=== PATIENT | male | born 1955 | race Caucasian/White ===

== ENCOUNTER 2018-03-06 09:50 | Inpatient (IN) ==
[2018-03-06] MEDS ORDERED: PEPCID IV ONE (11:03)
[2018-03-06] MEDS ORDERED: NS 500 ML IV ONE (11:03)
[2018-03-06] MEDS ORDERED: NICODERM PATCH TD ONE (11:03)
[2018-03-06] MEDS ORDERED: LEVAQUIN 750 MG/D5W 750 MG/150 ML IVPB IV ONE (11:03)
[2018-03-06] MEDS ORDERED: DUONEB (A & A) INH ONE (11:03)
[2018-03-06] MEDS ORDERED: TYLENOL PO ONE (11:03)
[2018-03-06] MEDS ORDERED: SOLU-MEDROL IV ONE (11:03)
[2018-03-06] MEDS ORDERED: SODIUM CHLORIDE 0.9% INJ ONE (11:05)
[2018-03-06 11:29] LABS: ALLEN TEST YES; BE 1.2 mmoll (-3.0-3.0); BLOOD TYPE ARTERIAL; HCO3-(ACT) 25.7 mmoll (20.0-26.0); METHB 0.9 % (0.0-1.5); O2(CT) 17.1 mL/dL (15.0-23.0); PCO2(98.6) 41 mmHg (35-45); PO2(98.6) 72 mmHg (60-100); SAMPLE BLOOD; SAO2 96.9 % (95.0-100.0); THB 13.6 g/dL (11.5-17.4); pH(98.6) 7.41 (7.35-7.45)
[2018-03-06 11:30] LABS: MODALITY ROOM AIR; O2HB 89.5 % (95.0-99.0)
[2018-03-06 11:35] LABS: BASO# 0.04 X1000 (0.0-0.2); BASO% 0.5 % (0.0-0.8); EOS# 0.15 X1000 (0.0-0.7); EOS% 1.7 % (0.0-10.0); HEMATOCRIT 42.5 % (42.0-52.0); IMM GRAN# 0.03 X1000 (0.0-0.04); IMM GRAN% 0.3 % (0.0-0.5); LYMPH# 2.77 X1000 (1.2-3.4); LYMPH% 32.2 % (20.5-51.1); MCH 32.2 PG (27-31); MCHC 32.9 g/dL (33-37); MCV 97.7 FL (81-99); MONO# 0.83 X1000 (0.11-0.59); MONO% 9.7 % (1.7-9.3); NEUT# 4.77 X1000 (1.4-6.5); NEUT% 55.6 % (42.2-75.2); PLT 279 X1000 (130-400); RBC 4.35 XMIL (4.7-6.1); WBC 8.59 X1000 (4.8-10.8)
--- NOTE | 2018-03-06 11:50 | Diag Imaging Result Doc PS360 ---
EXAM: CHEST-2 VIEWS 03/06/2018 HISTORY: short of breath TECHNIQUE: PA and lateral chest COMMENT: There are scattered granulomata. The heart size and pulmonary vascularity are within normal limits. The appearance of the chest has not changed significantly since 07/22/2017. IMPRESSION: Stable chest. Electronically signed by Rahul Taylor 03/06/2018 11:48 AM
[2018-03-06 12:07] LABS: AGAP 13; ALB/GLOB RATIO 1.9; ALBUMIN 3.9 g/dL (3.5-5.0); ALKALINE PHOSPHATASE 62 U/L (32-122); BUN 17 mg/dL (8-22); CALCIUM 8.7 mg/dL (8.8-10.2); CHLORIDE 106 mmol/L (98-107); COSMO 286; CREATININE 0.8 mg/dL (0.7-1.2); ESTIMATED GFR > 60; GLUCOSE 90 mg/dL (70-104); GOT 31 U/L (10-34); GPT 33 U/L (10-44); POTASSIUM 4.2 mmol/L (3.5-5.1); SODIUM 143 mmol/L (136-145); TCO2 24 mmol/L (25-35); TOTAL BILIRUBIN 0.27 mg/dL (0.20-1.00)
--- NOTE | 2018-03-06 14:17 | EKG Report ---
Test Performed on : 03/06/2018 10:00:34 AM Test Reason : ED. NO EKG ORDER FOR MUSE Blood Pressure : / mmHG Vent. Rate : 054 BPM Atrial Rate : 054 BPM P-R Int : 150 ms QRS Dur : 088 ms QT Int : 446 ms P-R-T Axes : 094 073 028 degrees QTc Int : 422 ms Sinus bradycardia. Otherwise normal ECG When compared with ECG of 25-JUL-2017 09:50, No significant change was found Unconfirmed Result
[2018-03-06] MEDS ORDERED: TYLENOL PO PRN (14:42)
[2018-03-06] MEDS ORDERED: DUONEB (A & A) INH PRN (14:42)
[2018-03-06] MEDS: DUONEB (A & A) INH SCH ×3 (15:29→23:15)
[2018-03-06] MEDS: LOVENOX SUBQ SCH (15:52)
[2018-03-06] MEDS: ZITHROMAX 500 MG/NS 500 MG/250 ML IVPB IV SCH (15:53)
--- NOTE | 2018-03-06 16:31 | HISTORY AND PHYSICAL ---
PCP: None. CHIEF COMPLAINT: Dyspnea. HISTORY OF PRESENT ILLNESS: Mr. Jones is a 62-year-old male with a history of COPD, not currently on oxygen, chronic pain on narcotic therapy, aortic stenosis, and depression, who comes to the ER with 3-4 days of increasing dyspnea. He went to a walk in clinic around 3-4 days ago because of shortness of breath. He was treated with breathing treatments and sent home. Since that time, he has had continued progressive dyspnea as well as subjective fever and chills. He has chest pain, but only pleuritic type pain when coughing. He denies any resting angina or exertional angina. He denies any lower extremity edema but does report orthopnea. Increasing and progressive dyspnea brought him to the ER today. In the ER his lab work was essentially unremarkable with the exception of an ABG which showed carboxyhemoglobin of 6.7 as well as oxyhemoglobin of 89.5. He does not have a white count and his chest x-ray does not show any acute infiltrates. On physical exam he is continuing to wheeze and having shortness of breath, so he is going to be admitted for COPD exacerbation. PAST MEDICAL HISTORY: 1. Chronic pain on narcotic therapy. 2. Depression. 3. Aortic stenosis status post heart catheterization by Dr. Gallagher on 07/25/17, did show valve area of 0.98, also very minimal nonobstructive coronary artery disease. 4. Borderline diabetes mellitus. SURGICAL HISTORY: He has had bilateral hip arthroplasties, cholecystectomy, and inguinal hernia repair. SOCIAL HISTORY: He is a 50 pack year smoker, denies alcohol or drug use. He is , is at the bedside. He currently still works in [employer]. FAMILY HISTORY: Mother from bone cancer, father from CVA. REVIEW OF SYSTEMS: A 14-point review of systems obtained and found to be negative with the exception of the HPI. ALLERGIES: Penicillin, sulfa. HOME MEDICATIONS: Atrovent HFA 2 puffs inhaled at night, oxycodone 10 one tab p.o. t.i.d., Requip 5 mg p.o. h.s., Neurontin 200 mg p.o. h.s. PHYSICAL EXAMINATION: VITAL SIGNS: Blood pressure 130/60. Heart rate 65. Respiratory rate 22. O2 sat 100% on nasal cannula. Temperature 98.1. GENERAL: This is a well-developed, well-nourished, 62-year-old, male lying on the hospital bed in no acute distress. NEUROLOGIC: He is awake, alert, and oriented. Follows commands without focal deficits. HEENT: Head is atraumatic and normocephalic. Pupils are equal, round, and reactive to light. Oral mucosa is a bit dry. NECK: Trachea is midline. There is no JVD. CHEST: Diminished at the bases with faint expiratory wheezing bilaterally. CV: Regular rate and rhythm. S1, S2 is noted. There is a 2/6 systolic ejection murmur noted. GI: Soft, nondistended, nontender. Bowel sounds are active. EXTREMITIES: No edema, clubbing, or cyanosis. Pulses 1+ bilaterally. DIAGNOSTIC DATA: WBC 8.59, hemoglobin 14, hematocrit 42.5, platelet count 279. ABG on room air: pH 7.41, O2 41, O2 72, bicarbonate 25.7, oxyhemoglobin 88.9, carboxyhemoglobin 6.7. Sodium 143, potassium 4.2, chloride 106, CO2 24, anion gap 13, BUN 17, creatinine 0.8, glucose 90, calcium 8.7, T bili 0.27, AST 31, ALT 33, alk phos 62, ammonia 20. Troponin negative. Protein 6, albumin 3.9. ASSESSMENT AND PLAN: 1. Chronic obstructive pulmonary disease exacerbation: Continue IV steroids, breathing treatments, antibiotics, aggressive pulmonary toilet. 2. Atypical chest pain: Heart catheterization done about 7 months ago shows very minimal nonobstructive coronary artery disease. He does have moderate aortic stenosis. We will trend his cardiac enzymes and monitor telemetry. EKG does not show anything acute. 3. Aortic stenosis: No signs of worsening at this time. We will have him follow-up with Dr. Gallagher on an outpatient basis. 4. Borderline diabetes mellitus: We will check a hemoglobin A1c and a lipid panel. 5. Nicotine dependence: The patient has been highly advised to quit smoking. We will write a nicotine patch, continue daily cessation education. Further recommendations to follow. Dictated by MARYANN Jarrett for Dell Duff MD cc: MARYANN Jarrett MD
[2018-03-06 17:52] LABS: ALLEN TEST NO; BE -1.5 mmoll (-3.0-3.0); BLOOD TYPE ARTERIAL; HCO3-(ACT) 23.7 mmoll (20.0-26.0); METHB 1.1 % (0.0-1.5); O2(CT) 18.1 mL/dL (15.0-23.0); O2HB 93.6 % (95.0-99.0); PCO2(98.6) 37 mmHg (35-45); PO2(98.6) 101 mmHg (60-100); SAMPLE BLOOD; SAO2 99.4 % (95.0-100.0); THB 13.7 g/dL (11.5-17.4)
[2018-03-06 17:53] LABS: MODALITY CANNULA
[2018-03-06] MEDS: SOLU-MEDROL IV SCH (21:00)
[2018-03-06] MEDS: BUSPAR PO PRN (21:00)
[2018-03-06] MEDS ORDERED: PERCOCET-10 PO SCH (21:00)
[2018-03-06] MEDS: NORCO-10 PO PRN (21:00)
[2018-03-06] MEDS: NEURONTIN PO SCH (21:01)
[2018-03-07] MEDS: DUONEB (A & A) INH SCH ×6 (03:45→23:37)
[2018-03-07] MEDS: SOLU-MEDROL IV SCH ×3 (04:26→20:33)
[2018-03-07] MEDS: NORCO-10 PO PRN ×3 (05:47→22:58)
[2018-03-07] MEDS: PRILOSEC PO SCH ×2 (05:47→06:30)
[2018-03-07 06:21] LABS: BASO# 0.01 X1000 (0.0-0.2); BASO% 0.1 % (0.0-0.8); HEMATOCRIT 42.1 % (42.0-52.0); HEMOGLOBIN 13.7 g/dL (14.0-18.0); IMM GRAN# 0.03 X1000 (0.0-0.04); IMM GRAN% 0.4 % (0.0-0.5); LYMPH# 1.02 X1000 (1.2-3.4); LYMPH% 12.4 % (20.5-51.1); MCH 31.6 PG (27-31); MCHC 32.5 g/dL (33-37); MONO% 3.6 % (1.7-9.3); MPV 10.8 FL (7.4-10.4); NEUT# 6.87 X1000 (1.4-6.5); NEUT% 83.5 % (42.2-75.2); PLT 273 X1000 (130-400); RBC 4.34 XMIL (4.7-6.1); WBC 8.23 X1000 (4.8-10.8)
[2018-03-07 07:13] LABS: AGAP 11; BUN 18 mg/dL (8-22); CALCIUM 8.7 mg/dL (8.8-10.2); CHLORIDE 106 mmol/L (98-107); COSMO 289; CREATININE 0.8 mg/dL (0.7-1.2); ESTIMATED GFR > 60; GLUCOSE 172 mg/dL (70-104); MAGNESIUM 2.1 mg/dL (1.5-2.7); POTASSIUM 4.8 mmol/L (3.5-5.1); SODIUM 142 mmol/L (136-145); TCO2 25 mmol/L (25-35)
[2018-03-07] MEDS: NICODERM PATCH TD SCH (08:09)
[2018-03-07] MEDS: NEURONTIN PO SCH ×2 (08:09→20:33)
[2018-03-07] MEDS: ASPIRIN PO SCH (08:09)
[2018-03-07] MEDS: LOVENOX SUBQ SCH (14:40)
[2018-03-07] MEDS: ZITHROMAX 500 MG/NS 500 MG/250 ML IVPB IV SCH (14:40)
--- NOTE | 2018-03-07 19:02 | PROGRESS NOTE ---
DATE: 03/07/2018 SUBJECTIVE: This patient is still complaining of shortness of breath and wheezing. He is not complaining of chest pain, nausea, vomiting, diarrhea, constipation, fever or chills. We will continue with the same management for now. He is getting breathing treatment, steroids, oxygen supplementation, and antibiotics. This patient is still smoking, and he has been highly advised against tobacco use. OBJECTIVE: Vital Signs: Temperature 98 degrees, pulse 77, respiratory rate 21, blood pressure 111/55, oxygen saturation 95% on 2 liters of nasal cannula. HEENT: Head normocephalic. No trauma. PERRLA. Neck: Supple. No JVD. No masses. Central trachea. Chest: Decreased breath sounds globally with prolonged expiratory phase and bilateral expiratory wheezing. Abdomen: Soft, nontender, nondistended. No hepatosplenomegaly. Extremities: No edema. No clubbing. No cyanosis. Neurological: The patient is alert and oriented x3. No focal deficits. LABORATORY DATA: WBC 8.2, hemoglobin 13.7, hematocrit 42.1, platelets 273,000. Sodium 142, potassium 4.8, chloride 106, bicarbonate 25, BUN 18, creatinine 0.8, glucose 172, calcium 8.7, magnesium 2.1. Troponin negative x3. ASSESSMENT AND PLAN: 1. Chronic obstructive pulmonary disease exacerbation. Continue with intravenous steroids, breathing treatment, antibiotics, do pulmonary toilet and oxygen supplementation. 2. Atypical chest pain on presentation, resolved. He had a heart catheterization done 7 months ago that showed minimal nonobstructive coronary arterial disease. He does have a moderate aortic stenosis. Troponin has been negative. 3. Moderate aortic stenosis, stable. For now, we will continue to monitor. 4. Borderline diabetes mellitus. We will monitor for now. I have requested a hemoglobin A1c. 5. Hyperglycemia, likely secondary to steroid use. 6. Tobacco abuse. This patient has been highly advised against tobacco use. We will continue with daily cessation education and using a nicotine patch. cc: Dell Duff MD
[2018-03-07] MEDS: BUSPAR PO PRN (22:58)
[2018-03-08] MEDS: DUONEB (A & A) INH SCH ×6 (03:57→23:15)
[2018-03-08] MEDS: SOLU-MEDROL IV SCH ×3 (05:40→23:26)
[2018-03-08 06:46] LABS: BASO# 0.01 X1000 (0.0-0.2); BASO% 0.1 % (0.0-0.8); HEMATOCRIT 41.4 % (42.0-52.0); HEMOGLOBIN 13.6 g/dL (14.0-18.0); IMM GRAN# 0.05 X1000 (0.0-0.04); IMM GRAN% 0.4 % (0.0-0.5); LYMPH# 1.45 X1000 (1.2-3.4); LYMPH% 11.4 % (20.5-51.1); MCH 31.5 PG (27-31); MCHC 32.9 g/dL (33-37); MCV 95.8 FL (81-99); MONO# 0.67 X1000 (0.11-0.59); MONO% 5.3 % (1.7-9.3); MPV 10.8 FL (7.4-10.4); NEUT# 10.52 X1000 (1.4-6.5); NEUT% 82.8 % (42.2-75.2); PLT 326 X1000 (130-400); RBC 4.32 XMIL (4.7-6.1); RDW 13.8 % (11.5-14.5)
[2018-03-08 07:01] LABS: HEMOGLOBIN A1C 6.1 % (4.8-6.0)
[2018-03-08] MEDS: PRILOSEC PO SCH (07:01)
[2018-03-08] MEDS: NORCO-10 PO PRN ×3 (07:05→23:29)
[2018-03-08 07:10] LABS: AGAP 11; BUN 25 mg/dL (8-22); CALCIUM 8.8 mg/dL (8.8-10.2); CHLORIDE 103 mmol/L (98-107); COSMO 288; CREATININE 0.9 mg/dL (0.7-1.2); ESTIMATED GFR > 60; GLUCOSE 179 mg/dL (70-104); MAGNESIUM 2.3 mg/dL (1.5-2.7); POTASSIUM 4.6 mmol/L (3.5-5.1); SODIUM 140 mmol/L (136-145); TCO2 26 mmol/L (25-35)
[2018-03-08] MEDS: ASPIRIN PO SCH (09:03)
[2018-03-08] MEDS: NICODERM PATCH TD SCH (09:03)
[2018-03-08] MEDS: NEURONTIN PO SCH ×2 (09:03→20:13)
[2018-03-08] MEDS: LOVENOX SUBQ SCH (15:01)
[2018-03-08] MEDS: ZITHROMAX 500 MG/NS 500 MG/250 ML IVPB IV SCH (15:01)
--- NOTE | 2018-03-08 15:31 | PROGRESS NOTE ---
DATE: 03/08/2018 SUBJECTIVE: This patient states that he is still short of breath but compared with admission he feels a little bit better, will continue with the breathing treatment, steroids, oxygen supplementation, pulmonary toilet, I will decrease the dose of steroids from 60 mg q.8 hours to 40 q.12 hours, his wheezing is minimal. OBJECTIVE: Vital Signs: Temperature 98 degrees, pulse 73, respiratory rate 24, blood pressure 111/57, oxygen saturation 99 on 2 L of nasal cannula. HEENT: Head normocephalic. No trauma. PERRLA. Neck: Supple. No JVD. No masses. Central trachea. Chest: Decreased breath sounds globally with prolonged expiratory phase and bilateral faint expiratory wheezing scattered. Abdomen: Soft, nontender, nondistended. No hepatosplenomegaly. Extremities: No edema. No clubbing. No cyanosis. Neurological: The patient is alert and oriented x3. No focal deficits. LABORATORY: WBC 12.7, hemoglobin 13.6, hematocrit 41.4, platelets 326,000, sodium 140, potassium 4.6, chloride 103, bicarbonate 26, BUN 29, creatinine 0.9, glucose 179, calcium 8.8. Hemoglobin A1c 6.1. Magnesium 2.3. ASSESSMENT AND PLAN: 1. Chronic obstructive pulmonary disease exacerbation, continue with the same treatment, I will decrease the dose of steroids from 60 mg IV q.8 hours to 40 mg IV q.12 hours, continue with oxygen supplementation as well. 2. Atypical chest pain on presentation, resolved. 3. Moderate aortic stenosis, stable for now. Will continue to monitor. 4. Borderline diabetes mellitus, hemoglobin A1c 6.1. Will continue to monitor. 5. Hyperglycemia likely secondary to steroid use. 6. Tobacco abuse. This patient has been highly advised against tobacco use. I will continue with daily cessation education and nicotine patch as needed. cc: Dell Duff MD
[2018-03-09] MEDS: DUONEB (A & A) INH SCH ×3 (03:31→11:41)
[2018-03-09] MEDS: PRILOSEC PO SCH (06:03)
[2018-03-09 06:45] LABS: AGAP 11; BUN 24 mg/dL (8-22); CALCIUM 8.2 mg/dL (8.8-10.2); CHLORIDE 102 mmol/L (98-107); COSMO 291; CREATININE 0.9 mg/dL (0.7-1.2); ESTIMATED GFR > 60; GLUCOSE 206 mg/dL (70-104); MAGNESIUM 2.1 mg/dL (1.5-2.7); POTASSIUM 4.8 mmol/L (3.5-5.1); SODIUM 141 mmol/L (136-145); TCO2 28 mmol/L (25-35)
[2018-03-09 06:56] LABS: HEMATOCRIT 41.8 % (42.0-52.0); HEMOGLOBIN 13.7 g/dL (14.0-18.0); IMM GRAN# 0.08 X1000 (0.0-0.04); IMM GRAN% 0.7 % (0.0-0.5); LYMPH# 1.03 X1000 (1.2-3.4); LYMPH% 9.2 % (20.5-51.1); MCH 31.4 PG (27-31); MCHC 32.8 g/dL (33-37); MCV 95.9 FL (81-99); MONO# 0.53 X1000 (0.11-0.59); MONO% 4.7 % (1.7-9.3); MPV 10.7 FL (7.4-10.4); NEUT# 9.58 X1000 (1.4-6.5); NEUT% 85.4 % (42.2-75.2); PLT 324 X1000 (130-400); RBC 4.36 XMIL (4.7-6.1); RDW 13.7 % (11.5-14.5); WBC 11.22 X1000 (4.8-10.8)
[2018-03-09] MEDS: ASPIRIN PO SCH ×2 (07:42→12:26)
[2018-03-09] MEDS: NEURONTIN PO SCH ×2 (07:42→12:26)
[2018-03-09] MEDS: NORCO-10 PO PRN (07:42)
[2018-03-09] MEDS: NICODERM PATCH TD SCH ×2 (07:43→12:27)
[2018-03-09] MEDS: SOLU-MEDROL IV SCH (11:20)
[2018-03-09 12:07] VITALS: BP 114/50
[2018-03-09] MEDS ORDERED: PNEUMOVAX 23 IM ONE (12:15)
--- NOTE | 2018-03-09 22:05 | DISCHARGE SUMMARY ---
ADMISSION DATE: 03/06/2018 DISCHARGE DATE: 03/09/2018 DISCHARGE DIAGNOSES: 1. Chronic obstructive pulmonary disease exacerbation. 2. Atypical chest pain, resolved. 3. Moderate aortic stenosis. 4. Borderline diabetes mellitus, with a hemoglobin A1c of 6.1. 5. Tobacco abuse. HOSPITAL COURSE: A 62-year-old male with a past medical history of COPD, chronic pain, aortic stenosis, who came to the emergency department and admitted on 03/06/2018 due to a 4-day history of dyspnea. He went to a walk-in clinic 3 or 4 days before admission because of shortness of breath. He was treated with breathing treatment and sent home. Since that time, he was just progressively getting worse, and having some subjective chills. Also, he had chest pain, pleuritic-type, when he coughs. He denies any increasing orthopnea. No headache. No abdominal pain. No diarrhea. No nausea. No vomiting. In the emergency department, lab work was essentially stable, with the exception of an ABG, which showed a carboxyhemoglobin of 6.7, as well as oxyhemoglobin of 89.5. X-ray did not show acute infiltrates. Physical exam with wheezing and having shortness of breath. He was admitted because of chronic obstructive pulmonary disease exacerbation. He was placed on steroids breathing treatment, oxygen supplementation, pulmonary toilet. He was transferred to the medical floor, where he was getting better on a daily basis. The dose of the steroids was decreased slowly during this hospitalization. Today, this patient is asymptomatic. He is tolerating p.o., ambulating, and no shortness of breath present. He does have a history of tobacco abuse. I had a really large conversation with this patient, around 50 minutes, about tobacco use and how they cause COPD. He seems to understand, and he has been highly advised against tobacco use. I did continue daily cessation education. He will be discharged home today. He does not need oxygen at this moment. OBJECTIVE: Vital Signs: Temperature 97.5 degrees, pulse 77, respiratory rate 22, blood pressure 114/50, oxygen saturation 94 on room air. HEENT: Head normocephalic. No trauma. PERRLA. Neck: Supple. No JVD. No masses. Central trachea. Chest: Decreased breath sounds globally, with prolonged expiratory phase. No wheezing. Abdomen: Soft, nontender, nondistended. No hepatosplenomegaly. Extremities: No edema. No clubbing. No cyanosis. Neurological: The patient is alert and oriented x3. No focal deficits. LABORATORY: WBC 11.2, hemoglobin 13.7, hematocrit 41.8, platelets 324,000. Sodium 141, potassium 4.8, chloride 102, bicarbonate 28, BUN 24, creatinine 0.9, glucose 206, calcium 8.2, magnesium 2.1. DISCHARGE MEDICATIONS: 1. [place] 10 one tablet p.o. t.i.d. as needed. 2. Lexapro 20 mg p.o. at bedtime. 3. Buspirone 1 tablet p.o. t.i.d. 4. Gabapentin 300 mg p.o. b.i.d. 5. Ropinirole 5 mg p.o. at bedtime. 6. Atrovent HFA one puff q.p.m. 7. Albuterol sulfate 1 to 2 puffs inhaler inhaled 3 to 4 times a day as needed for shortness of breath. 8. Nicotine patch 21 mg p.o. daily as needed. 9. Medrol Dosepak 4 mg p.o. as directed. 10. Advair 250/50 Diskus 1 puff inhaler daily. 11. Azithromycin 1 tablet p.o. daily for 3 days. 12. Aspirin 81 mg p.o. daily. FOLLOWUP: By his primary care doctor in 1 week. TIME DISCHARGING THIS PATIENT: 35 minutes. cc: Dell Duff MD
== END 2018-03-09 13:56 | disposition home or self-care (01) | DRG 192 ==
LOC: SUPCPDRO → ED 09:50 → EDIPHOLD 14:29 → 4N 16:45
PROVIDERS: ATTEND Internal Medicine
CPT/HCPCS: 71020; 71046; 80048; 80053; 82140; 82550; 82805; 83036; 83735; 84484; 85025; 87275; 87276; 87804; 90732; 93005; 94640; 94761; 94762; 94799; 96365; 96375; 99285; A9270; J0456; J1650; J1956; J2920; J2930; J7040; S0028

== ENCOUNTER 2019-02-05 01:01 | Inpatient (IN) ==
[2019-02-05] MEDS ORDERED: DUONEB (A & A) INH ONE (01:19)
[2019-02-05] MEDS ORDERED: SOLU-MEDROL IV ONE (01:19)
--- NOTE | 2019-02-05 01:23 | PROVIDER DOCUMENTATION ---
This chart was entered by Sharda Velasquez Scribe, acting as scribe for Yohannes Yeh MD. HPI-Respiratory General - General Stated Complaint: WHEEZING/SOB/COPD Time Seen by Provider: 02/05/19 01:10 Source: patient Allergies/Adverse Reactions: Patient Allergies Allergy/AdvReac Type Severity Reaction Status Date / Time Penicillins Allergy Severe choking Verified 03/06/18 17:20 Sulfa (Sulfonamide Allergy Intermediate VOMITING Verified 03/06/18 17:20 Antibiotics) sulfamethoxazole AdvReac NAUSEA Verified 03/06/18 17:20 [From Bactrim] trimethoprim [From Bactrim] AdvReac NAUSEA Verified 03/06/18 17:20 Home Medications: Home Medication List Medication Instructions Recorded Confirmed Last Taken Type Escitalopram [Lexapro] 20 mg PO QHS 03/06/18 02/05/19 03/05/18 History Gabapentin 300 mg PO TID 03/06/18 02/05/19 Unknown History Aspirin 81 mg PO DAILY chewtab 03/09/18 02/05/19 Unknown Rx Hydrocodone/Acetaminophen [[place] 1 tab PO PRN PRN 02/05/19 02/05/19 Unknown History 10-325 Tablet] - History of Present Illness-Resp Nature of Presenting Problem: 63 y/o male with history of COPD and tobacco abuse who presents with wheezing, productive cough, and SOB onset 2 days ago despite home updrafts and inhaler. Pt states he smokes 1 ppd. Pt denies fever, chest pain, or cardiac hx. Quality of Pain: reports: none Severity in ED: reports: mild Onset/Duration: reports: 2 days ago Timing: reports: still present Context: reports: other (hx COPD) Exposure: reports: other (hx COPD) Cough Quality/Degree: reports: productive cough Episode Frequency: chronic episodes (hx COPD) Current Respiratory Medication Therapy: Initiated see nurses note Modifying Factors: improves with: nothing Associated Symptoms: reports: cough, shortness of breath, short of breath, wheezing Similar Symptoms Previously?: Yes (hx COPD) Recently seen or treated by another doctor?: No Review of Systems - Adult - REVIEW OF SYSTEMS - ADULT Constitutional: denies: chills, fever Eyes: reports: no symptoms reported Ears, Nose, Mouth & Throat: reports: no symptoms reported Cardiovascular: denies: chest pain, palpitations Respiratory: reports: cough, shortness of breath, wheezing Gastrointestinal: reports: no symptoms reported Genitourinary: reports: no symptoms reported Musculoskeletal: reports: no symptoms reported Integumentary: reports: no symptoms reported Neurological: reports: no symptoms reported Psychiatric: reports: no symptoms reported Endocrine: reports: no symptoms reported Hematologic/Lymphatic: reports: no symptoms reported Allergic/Immunologic: reports: no symptoms reported All Other Systems: Reviewed and Negative Past History - Adult - PAST MEDICAL HISTORY-ADULT Review of Records: reports: Old Records Reviewed, Nursing Assessment Review, Medications Reviewed Major Childhood Illnesses: reports: denies history Cardiovascular: reports: HTN, heart valve problem Respiratory: reports: COPD Gastrointestinal: reports: GERD Obstetrical/Gynecological: reports: denies history Genitourinary: reports: denies history Musculoskeletal: reports: arthritis (chronic), chronic pain Neurological: reports: denies history Endocrine/Immune: reports: Diabetes Diabetes Type: Type 2 Other Conditions: reports: denies history - PRIOR SURGERIES/PROCEDURES Surgical/Procedure History: reports: cholecystectomy, hernia repair, joint replacement (L&R total hip replacement) - PRIOR HOSPITALIZATIONS Prior Hospitalizations: reports: none - IMMUNIZATION STATUS Childhood Immunizations: See Nurse Assessment Flu Vaccine: See Nurse Assessment - FAMILY HISTORY Family History: reviewed, not pertinent - SOCIAL HISTORY Smoking: greater than 1 pack/day Provider spent 3-5 mins advising pt. on dangers of tobacco.: Discussed manners to quit use, and f/u contacts for add'l counseling. Substance Use: none/never Alcohol Use Frequency: never Living Situation: family Physical Exam-General - PHYSICAL EXAM-ADULT Initial Vital Signs Reviewed: Yes - CONSTITUTIONAL General Appearance: appears well, alert, no apparent distress - EYES Eyes: PERRL/EOMI, pink conjunctivae - HEAD, EARS, NOSE, MOUTH & THROAT HENMT: normocephalic/atraumatic, moist mucous membranes, normal ENT inspection - NECK Neck: non-tender, full range of motion - RESPIRATORY Respiratory: chest non-tender, normal breath sounds, wheezing (expiratory) - CARDIOVASCULAR Cardiovascular: normal peripheral pulses, regular rate, rhythm - GASTROINTESTINAL (ABDOMEN) Abdominal Exam: normal bowel sounds, non tender, soft - MUSCULOSKELETAL Back Exam: normal inspection, no CVA tenderness, no vertebral tenderness Extremity: normal range of motion, non-tender - SKIN Integumentary: normal color, warm/dry - NEUROLOGIC Neurologic: grossly normal - PSYCHIATRIC Psych/Mental Status: normal mood/affect, normal thought content, normal thought process, oriented x 3 - HEART Score HEART Score: History: Slightly Suspicious HEART Score: ECG: Normal HEART Score: Age: 45-65 Years HEART Score: Risk Factors for Atherosclerotic Disease: 1 or 2 Risk Factors HEART Score: Troponin: < or = Normal Limit Total HEART Score:: 2 Progress - PLAN OF CARE/RESULTS Progress/Plan/Lab Results: Vital Signs - 8 hr 02/05/19 01:18 02/05/19 01:30 Temperature 98.4 F Pulse Rate 90 88 Respiratory Rate 20 20 Blood Pressure 130/59 O2 Sat by Pulse Oximetry 89 L 95 Laboratory Results - last 24 hr 02/05/19 02/05/19 02/05/19 01:38 01:38 01:38 WBC 9.88 RBC 4.43 L Hgb 14.0 Hct 43.2 MCV 97.5 MCH 31.6 H MCHC 32.4 L RDW Std Deviation 13.4 Plt Count 296 MPV 10.6 H Immature Gran % (Auto) 0.2 Neut % (Auto) 93.7 H Lymph % (Auto) 5.5 L Andrews % (Auto) 0.4 L Eos % (Auto) 0.1 Baso % (Auto) 0.1 Immature Gran # (Auto) 0.02 Neut # (Auto) 9.26 H Lymph # (Auto) 0.54 L Andrews # (Auto) 0.04 L Eos # (Auto) 0.01 Baso # (Auto) 0.01 Specimen Type Sample Site pH pCO2 pO2 HCO3 Base Excess Oxyhemoglobin ABG O2 Sat (Calculated) ABG O2 Saturation ABG Carboxyhemoglobin ABG Methemoglobin Laurent Test A-a O2 Difference Total Hemoglobin Lactate Liter Flow Blood Gas Modality FiO2 % Sodium Potassium Chloride Carbon Dioxide Anion Gap BUN Creatinine Estimated GFR/1.73 m2 BUN/Creatinine Ratio Glucose Calculated Osmolality Calcium Total Bilirubin AST ALT Alkaline Phosphatase Creatine Kinase 91 Troponin T < 0.010 Pwi-A-Jvvbiwyzyis Pept Total Protein Albumin Globulin Albumin/Globulin Ratio 02/05/19 02/05/19 02/05/19 01:38 01:38 01:42 WBC RBC Hgb Hct MCV MCH MCHC RDW Std Deviation Plt Count MPV Immature Gran % (Auto) Neut % (Auto) Lymph % (Auto) Andrews % (Auto) Eos % (Auto) Baso % (Auto) Immature Gran # (Auto) Neut # (Auto) Lymph # (Auto) Andrews # (Auto) Eos # (Auto) Baso # (Auto) Specimen Type ARTERIAL Sample Site R RADIAL pH 7.36 pCO2 43 pO2 107 H HCO3 23.8 Base Excess -1.3 Oxyhemoglobin 92.6 L ABG O2 Sat (Calculated) 18.0 ABG O2 Saturation 99.1 ABG Carboxyhemoglobin 5.60 H* ABG Methemoglobin 1.0 Laurent Test YES A-a O2 Difference 39.0 Total Hemoglobin 13.7 Lactate 1.80 Liter Flow 2.0 Blood Gas Modality CANNULA FiO2 % 28.0 Sodium 140 Potassium 4.8 Chloride 103 Carbon Dioxide 23 L Anion Gap 14 BUN 26 H Creatinine 1.2 Estimated GFR/1.73 m2 > 60 BUN/Creatinine Ratio 22 Glucose 307 H Calculated Osmolality 296 Calcium 9.0 Total Bilirubin 0.16 L AST 19 ALT 19 Alkaline Phosphatase 73 Creatine Kinase Troponin T Pxo-V-Gsiepsqiruy Pept 92 Total Protein 6.4 Albumin 4.3 Globulin 2.1 Albumin/Globulin Ratio 2.0 Orders Category Date Time Status Cardiac Monitoring DIRECTED Care 02/05/19 01:20 Active CHEST-PORTABLE [RAD] Stat Exams 02/05/19 01:20 Taken ABG [RESP] Routine Lab 02/05/19 01:42 Completed BNP [PRO B-NATRIURETIC PEPTIDE] Stat Lab 02/05/19 01:38 Completed CBC WITH ELECTRONIC DIFF [HEME] Stat Lab 02/05/19 01:38 Completed CK PROFILE [SP CHEM] Stat Lab 02/05/19 01:38 Completed CMP [COMPREHENSIVE METABOLIC PANEL] [CHEM] Stat Lab 02/05/19 01:38 Completed TROPONIN T Stat Lab 02/05/19 01:38 Completed Albuterol 2.5MG/Ipratrop 0.5MG [Duoneb (A & A)] Med 02/05/19 01:19 Discontinued 3 ml INH NOW ONE CefTRIAXONE [Rocephin] 1 gm Med 02/05/19 02:16 Active 0.9% Sodium Chloride Inj [Ns] 50 ml IV NOW Methylprednisolone Sod Succ [Solu-Medrol] Med 02/05/19 01:19 Discontinued 125 mg IV NOW ONE Aerosol Treatments Routine Oth 02/05/19 01:19 Completed Aerosol Treatments Stat Oth 02/05/19 01:19 Completed Pulse Oximetry Stat Oth 02/05/19 01:23 Completed Result Diagrams: 02/05/19 01:38 02/05/19 01:38 - REASSESSMENT Reassessment #1 Time Reassessed: 02:00 Status: unchanged Reassessment Comment: continues to wheeze - EKG 1 Time of EKG reading by physician:: 01:24 EKG Read and Signed by:: Yohannes Yeh EKG Interpretation (*Must complete 3 of following elements*): Abnormal Rate: 86 Rhythm: Sinus with frequent PVCs [place]: normal QRS: other (possible lateral infarct) SD Interval: normal ST Wave: normal - XRAY 1 XRAY Study: Chest Impression: See EMR Report - CONSULTS/PCP/HOSPITALIST Notification #1 *Consult/PCP/Hospitalist*: Dr. Trinidad, hospitalist Time Discussed: 02:30 Consult Disposition: Admit Departure - Departure Date of Disposition Decision: 02/05/19 Time of Disposition Decision: 02:35 DIAGNOSIS: COPD exacerbation Disposition: ADMITTED INPATIENT 09 Certified Medical Emergency: Emergent Condition: Stable Referrals and Follow-Ups: None,PCP [Primary Care Provider] - Discharge Education: Steps to Quit Smoking, [id number] - Critical Care Note This patient required my direct & personal management of CC.: No Attestation - Physician/ ROSALIA Attestation Patient care was provided by Advanced Practice Provider:: No The physician spent face to face time with patient:: Yes Advanced Practice Provider documentation review:: Supervising physician onsite and consulted in the evaluation and care of this patient. The physician did have a face to face encounter with the patient. This chart was documented by the indicated scribe, (Sharda Velasquez Scribe) and accurately reflects the services I performed and decisions made by me, Yohannes Yeh MD, as attested by the provider's signature.
[2019-02-05 01:51] LABS: ALLEN TEST YES; BE -1.3 mmoll (-3.0-3.0); BLOOD TYPE ARTERIAL; HCO3-(ACT) 23.8 mmoll (20.0-26.0); O2HB 92.6 % (95.0-99.0); PCO2(98.6) 43 mmHg (35-45); PO2(98.6) 107 mmHg (60-100); SAMPLE BLOOD; SAO2 99.1 % (95.0-100.0); THB 13.7 g/dL (11.5-17.4); pH(98.6) 7.36 (7.35-7.45)
[2019-02-05 01:53] LABS: MODALITY CANNULA
[2019-02-05 02:06] LABS: BASO# 0.01 X1000 (0.0-0.2); BASO% 0.1 % (0.0-0.8); EOS# 0.01 X1000 (0.0-0.7); EOS% 0.1 % (0.0-10.0); HEMATOCRIT 43.2 % (42.0-52.0); IMM GRAN# 0.02 X1000 (0.0-0.04); IMM GRAN% 0.2 % (0.0-0.5); LYMPH# 0.54 X1000 (1.2-3.4); LYMPH% 5.5 % (20.5-51.1); MCH 31.6 PG (27-31); MCHC 32.4 g/dL (33-37); MCV 97.5 FL (81-99); MONO# 0.04 X1000 (0.11-0.59); MONO% 0.4 % (1.7-9.3); MPV 10.6 FL (7.4-10.4); NEUT# 9.26 X1000 (1.4-6.5); NEUT% 93.7 % (42.2-75.2); PLT 296 X1000 (130-400); RBC 4.43 XMIL (4.7-6.1); RDW 13.4 % (11.5-14.5); WBC 9.88 X1000 (4.8-10.8)
[2019-02-05 02:08] LABS: AGAP 14; ALBUMIN 4.3 g/dL (3.5-5.0); ALKALINE PHOSPHATASE 73 U/L (32-122); BUN 26 mg/dL (8-22); CHLORIDE 103 mmol/L (98-107); COSMO 296; CREATININE 1.2 mg/dL (0.7-1.2); ESTIMATED GFR > 60; GLUCOSE 307 mg/dL (70-104); GOT 19 U/L (10-34); GPT 19 U/L (10-44); POTASSIUM 4.8 mmol/L (3.5-5.1); SODIUM 140 mmol/L (136-145); TCO2 23 mmol/L (25-35); TOTAL BILIRUBIN 0.16 mg/dL (0.20-1.00); TOTAL PROTEIN 6.4 g/dL (6.3-8.3)
[2019-02-05] MEDS ORDERED: ROCEPHIN 1 GM in NS 50 ML IV ONE (02:16)
[2019-02-05] MEDS ORDERED: DUONEB (A & A) INH PRN ×2 (02:55→05:51)
[2019-02-05] MEDS ORDERED: NICODERM PATCH TD ONE (03:02)
[2019-02-05] MEDS ORDERED: NICODERM PATCH TD PRN ×2 (03:04→05:52)
[2019-02-05] MEDS ORDERED: LEVAQUIN 500 MG/D5W 500 MG/100 ML IVPB IV SCH (03:15)
[2019-02-05] MEDS ORDERED: DUONEB (A & A) INH SCH (03:30)
--- NOTE | 2019-02-05 06:20 | Diag Imaging Result Doc PS360 ---
CHEST-PORTABLE - 02/05/2019 INDICATION: sob,wheezing COMPARISON: 03/06/2018 FINDINGS: Stable hyperexpanded lungs compatible with COPD. There is some minimal infiltrate in the left lung base, nonspecific. There is pulmonary vascular congestion. No edema. No pleural effusion. Heart size is normal. IMPRESSION: Nonspecific left basilar infiltrate or atelectasis. Electronically signed by Solitario Perea 02/05/2019 6:18 AM
--- NOTE | 2019-02-05 06:20 | HISTORY AND PHYSICAL ---
CHIEF COMPLAINT: Shortness of breath for about 2 days. HISTORY OF PRESENT ILLNESS: Mr. Feliz Jones is a 63-year-old male, who has a history of hypertension, COPD, diabetes mellitus, and tobacco use history, who presented to the hospital because of shortness of breath which he has had for about 2 days. The patient has also described having wheezing as well as cough productive of yellowish sputum. Chest x-ray does not show any significant evidence of convincing infiltrate. The patient was seen and evaluated in the emergency room and has now been admitted to the floor now for further management. PAST MEDICAL HISTORY: COPD, hypertension, diabetes mellitus, valvular heart disease, gastroesophageal reflux disease, as well as chronic pain. SOCIAL HISTORY: He smokes cigarettes. No alcohol or drug use. ALLERGIES: He is allergic to penicillin and sulfa. PAST SURGICAL HISTORY: He has had bilateral hip surgery as well as cholecystectomy. FAMILY HISTORY: Positive for stroke and also cancer. MEDICATIONS: Escitalopram 20 mg p.o. once a day. Gabapentin 300 mg p.o. 3 times a day. Aspirin 81 mg p.o. daily. [place] 10/325 one p.o. p.r.n. REVIEW OF SYSTEMS: Constitutional: No fever. [employer]: No headaches. Eyes: No blurred vision. ENT: Has hearing loss and sinus problems. Cardiovascular: No chest pain. Gastrointestinal: No nausea, vomiting, or diarrhea, no abdominal pains. : No dysuria. Musculoskeletal: Has joint pains. Dermatology: No skin lesions. Hematology: No bleeding problems. Psychiatric: He has anxiety with depression. Endocrinology: Has diabetes. No thyroid disease. Allergy/Immunology: Has symptoms of allergic rhinitis. PHYSICAL EXAMINATION: VITAL SIGNS: Temperature 97.4 degrees, pulse 75, respirations 24, blood pressure is 112/55, oxygen saturation is 97%. HEENT: The patient is atraumatic, normocephalic. He is anicteric. Extraocular movements intact. No oral lesions noted. NECK: No lymphadenopathy or thyromegaly. CARDIOVASCULAR: S1, S2. RESPIRATORY SYSTEM: Has evidence of good air entry bilaterally. ABDOMEN: Soft, nontender. No masses felt. EXTREMITIES: No evidence of edema. CENTRAL NERVOUS SYSTEM: No obvious focal deficit noted. DIAGNOSTIC DATA: WBC 9.88, hematocrit 43.2, with a platelet count of 296,000. ABG 7.36/43/107/99.1%. Sodium 140, potassium 4.8, chloride is 103, bicarb 23, BUN is 26, creatinine is 1.2, glucose is 307. Chest x-ray, no significant infiltrate noted. ASSESSMENT AND PLAN: 1. Chronic obstructive pulmonary disease exacerbation. I will maintain the patient on nebulized bronchodilators, steroids, as well as antibiotics. Check on the patient's sputum culture and follow up on patient's clinical progression. 2. Tobacco use history. Nicotine patch recommended. 3. Hypertension. Optimize blood pressure control. 4. Diabetes mellitus. Maintain patient on sliding scale insulin and monitor blood sugar levels. Check hemoglobin A1c level. 5. Chronic pain syndrome. Optimize pain control. 6. Gastroesophageal reflux disease. Proton pump inhibitor. 7. Valvular heart disease. Check 2D echo. 8. Deep vein thrombosis prophylaxis. Lovenox. cc: Isaías Carmen MD
--- NOTE | 2019-02-05 06:59 | EKG Report ---
Test Performed on : 02/05/2019 06:46:04 AM Test Reason : shortness of breath Blood Pressure : / mmHG Vent. Rate : 070 BPM Atrial Rate : 070 BPM P-R Int : 176 ms QRS Dur : 086 ms QT Int : 436 ms P-R-T Axes : 082 064 034 degrees QTc Int : 470 ms Normal sinus rhythm. with sinus arrhythmia. Normal ECG When compared with ECG of 05-FEB-2019 01:23, (Unconfirmed) premature ventricular complexes. are no longer present Nonspecific T wave abnormality no longer evident in Lateral leads Confirmed by Carolyn VILLANUEVA, Sp ([id number]) on 02/05/2019 10:37:27 AM
[2019-02-05] MEDS ORDERED: HUMULIN R SUBQ SCH (07:00)
[2019-02-05] MEDS ORDERED: PRILOSEC PO SCH (07:00)
--- NOTE | 2019-02-05 07:22 | EKG Report ---
Test Performed on : 02/05/2019 01:23:06 AM Test Reason : SOB Blood Pressure : / mmHG Vent. Rate : 086 BPM Atrial Rate : 086 BPM P-R Int : 162 ms QRS Dur : 090 ms QT Int : 402 ms P-R-T Axes : 081 088 053 degrees QTc Int : 481 ms Sinus rhythm. with frequent premature ventricular complexes. Possible Lateral infarct , age undetermined Abnormal ECG When compared with ECG of 06-MAR-2018 10:00, premature ventricular complexes. are now present Vent. rate has increased BY 32 BPM Nonspecific T wave abnormality now evident in Lateral leads QT has lengthened Unconfirmed Result
[2019-02-05] MEDS: LEVAQUIN 500 MG/D5W 500 MG/100 ML IVPB IV SCH (07:31)
[2019-02-05] MEDS: PRILOSEC PO SCH (07:31)
[2019-02-05] MEDS: SOLU-MEDROL IV SCH ×3 (07:32→21:55)
[2019-02-05] MEDS: HUMALOG SUBQ SCH ×4 (07:32→21:55)
[2019-02-05] MEDS: DUONEB (A & A) INH SCH ×5 (07:46→23:05)
[2019-02-05] MEDS ORDERED: SOLU-MEDROL IV SCH (09:00)
[2019-02-05] MEDS: NORCO-10 PO SCH ×2 (09:10→17:04)
[2019-02-05] MEDS: ASPIRIN PO SCH (09:10)
[2019-02-05] MEDS: NEURONTIN PO SCH ×3 (09:10→17:04)
[2019-02-05] MEDS: BUSPAR PO SCH (12:16)
--- NOTE | 2019-02-05 14:32 | ECHO REPORT ---
ORDER DATE: 02/05/2019 INTERPRETING PHYSICIAN: Dr. Nasir Dietz ECHOCARDIOGRAPHIC MEASUREMENTS: 1. Interventricular septum: 0.8 cm. 2. Left ventricular posterior wall: 0.7 cm. 3. Diastolic diameter: 4.8 cm. 4. Left ventricular systolic diameter: 3.3 cm. 5. Aorta: 3.5 cm. 6. Left atrium: 4.2 cm. SUMMARY OF THE 2-DIMENSIONAL IMAGIN. Aortic valve leaflets are calcified. 2. Mitral valve is normal. 3. Tricuspid valve is normal. 4. Pulmonic valve is normal. 5. Peak velocity across the aortic valve was 4.5 meters per second with a maximum gradient of 80 mmHg, mean gradient of 53 mmHg. 6. Aortic valve area by VTR of 0.5 cm. 7. There is severe to critical aortic stenosis associated with mild aortic regurgitation. 8. There is mild mitral regurgitation. 9. Mild tricuspid regurgitation. 10. Peak velocity across the tricuspid valve was 2.2 meters per second. 11. Normal left ventricular cavity size. 12. Estimated ejection fraction of 65%. 13. There is no pericardial effusion or obvious intracardiac mass or thrombus seen. 14. Would recommend transesophageal echocardiogram to evaluate aortic valve. cc: MD Isaías Patterson MD
--- NOTE | 2019-02-05 15:57 | PROGRESS NOTE ---
DATE: 02/05/2019 SUBJECTIVE: The patient seems to be feeling a bit better today compared with yesterday. His wheezing has improved significantly. He is still short of breath. He is tolerating the nasal cannula. As per the patient, he is not on home O2. We did an echocardiogram that showed severe aortic stenosis, but since he is not having any kind of symptoms at this moment, probably I will set up an appointment with him with Cardiology as an outpatient to evaluate this or I can talk to the heart doctor which is on-call today for evaluation, but this patient is not complaining or having any cardiac symptoms at this moment. OBJECTIVE: Vital signs: Temperature 98.4 degrees, pulse 70, respiratory rate 16, blood pressure 122/66, oxygen saturation 100% on 3 L of nasal cannula. HEENT: Head normocephalic. No trauma. PERRLA. Neck: Supple. No JVD. No masses. Central trachea. Chest: Clear to auscultation. Prolonged expiratory phase. Some end-expiratory wheezing, faint. Some crepitus at the bases. Abdomen: Soft, nontender, nondistended. No hepatosplenomegaly. Extremities: No edema. No clubbing. No cyanosis. Neurological: The patient is awake, alert, and oriented x3. No focal deficits. LABORATORY: WBC 9.8, hemoglobin 14, hematocrit 43.2, platelets 296,000. Sodium 140, potassium 4.8, chloride 103, bicarbonate 23, BUN 26, creatinine 1.2, glucose 307, calcium 9, AST 19, ALT 19, alkaline phosphatase 73. ASSESSMENT AND PLAN: 1. Chronic obstructive pulmonary disease exacerbation. I will continue with the same management. He is getting steroids but I will decrease the dose from 60 q.8 hours to 40 q.12 hours. Continue with antibiotics and bronchodilators, oxygen supplementation. 2. Hypertension. Stable. 3. Type 2 diabetes. Continue with the same management. He seems to be stable. We are going to check a hemoglobin A1c. 4. Severe aortic stenosis. I do not think this patient knows about this diagnosis. I will try to set up an appointment for him or I will try to get 1 of the cardiologists to see this patient, but he is not symptomatic or having some cardiac problems at this moment. 5. Chronic pain syndrome. Continue with his home medications. 6. Gastroesophageal reflux disease. Continue with PPIs. 7. Valvular heart disease. Like I mentioned before, he has a severe aortic stenosis. He has been seen before by Dr. Gallagher and actually they already talked about his aortic stenosis. He had a cardiac cath last year that showed moderate aortic stenosis. The aortic valve area was 0.98 cm2 and [id number] coronary artery disease involving distal main trunk, proximal circumflex, proximal left anterior descending, dominant circumflex system, and no critical stenosis noted. At that point, they recommended just treating this patient medically. 8. Deep vein thrombosis prophylaxis with Lovenox. 9. Depression. Continue with home medications. cc: Dell Duff MD
[2019-02-05] MEDS: LEXAPRO PO SCH (21:54)
[2019-02-06] MEDS: NORCO-10 PO SCH ×4 (02:11→23:44)
[2019-02-06] MEDS: DUONEB (A & A) INH SCH ×6 (03:09→23:26)
[2019-02-06] MEDS: LEVAQUIN 500 MG/D5W 500 MG/100 ML IVPB IV SCH (05:06)
[2019-02-06] MEDS: PRILOSEC PO SCH ×2 (05:06→06:59)
[2019-02-06] MEDS: HUMALOG SUBQ SCH ×3 (06:49→17:55)
[2019-02-06 07:25] LABS: HEMOGLOBIN A1C 6.1 % (4.8-6.0)
[2019-02-06 07:28] LABS: AGAP 14; BUN 31 mg/dL (8-22); CHLORIDE 106 mmol/L (98-107); COSMO 295; CREATININE 1.1 mg/dL (0.7-1.2); ESTIMATED GFR > 60; GLUCOSE 222 mg/dL (70-104); POTASSIUM 4.7 mmol/L (3.5-5.1); SODIUM 141 mmol/L (136-145); TCO2 21 mmol/L (25-35)
[2019-02-06 07:29] LABS: BASO# 0.01 X1000 (0.0-0.2); BASO% 0.1 % (0.0-0.8); HEMATOCRIT 41.1 % (42.0-52.0); HEMOGLOBIN 13.5 g/dL (14.0-18.0); IMM GRAN# 0.04 X1000 (0.0-0.04); IMM GRAN% 0.3 % (0.0-0.5); LYMPH# 0.97 X1000 (1.2-3.4); LYMPH% 7.1 % (20.5-51.1); MCHC 32.8 g/dL (33-37); MCV 97.4 FL (81-99); MONO% 5.1 % (1.7-9.3); MPV 10.9 FL (7.4-10.4); NEUT# 11.96 X1000 (1.4-6.5); NEUT% 87.4 % (42.2-75.2); PLT 320 X1000 (130-400); RBC 4.22 XMIL (4.7-6.1); RDW 13.5 % (11.5-14.5); WBC 13.68 X1000 (4.8-10.8)
[2019-02-06 08:22] LABS: ANISOCYTOSIS 1+; LARGE PLATELETS 1+; LYMPHS 8 % (21-51); MONO 5 % (1-9); SEGS 87 % (42-75)
[2019-02-06] MEDS ORDERED: LOVENOX SUBQ SCH (09:00)
[2019-02-06] MEDS: ASPIRIN PO SCH (10:14)
[2019-02-06] MEDS: BUSPAR PO SCH (10:14)
[2019-02-06] MEDS: NEURONTIN PO SCH ×3 (10:14→17:02)
[2019-02-06] MEDS: LOVENOX SUBQ SCH (10:16)
[2019-02-06] MEDS: SOLU-MEDROL IV SCH (10:16)
--- NOTE | 2019-02-06 15:51 | PROGRESS NOTE ---
DATE: 02/06/2019 SUBJECTIVE: The patient is feeling better today. He is still wheezing, he is still having some shortness of breath. His oxygen saturation is better, and he is using oxygen now on and off. I will request a home O2 evaluation because I believe tomorrow this patient can go home with or without oxygen. Also, I will stop the IV steroids and put him on p.o. treatment. I think this patient is better. OBJECTIVE: Vital Signs: Temperature 97.5 degrees, pulse 68, respiratory rate 18, blood pressure 123/53, oxygen saturation 94% on room air. HEENT: Head normocephalic, no trauma, PERRLA. Neck: Supple. No JVD. No masses. Central trachea. Chest: Clear to auscultation, some wheezing, mostly at the upper part of the thorax, expiratory, prolonged expiratory phase. Some crepitus at the bases. Abdomen: Soft, nontender, nondistended. No hepatosplenomegaly. Extremities: No edema, no clubbing, no cyanosis. Neurological: The patient is awake and alert, he is oriented x3. No focal deficits. LABORATORY: WBC 13.6, hemoglobin 13.5, hematocrit 41.1, platelets 320,000. Sodium 141, potassium 4.7, chloride 106, bicarbonate 21, BUN 31, creatinine 1.1, glucose 222, hemoglobin A1c 6.1, calcium 9. ASSESSMENT AND PLAN: 1. COPD exacerbation. I will continue with same management, I will stop the steroids IV and I will transition to p.o. treatment. Continue with the same management, oxygen as needed, planning to discharge this patient in the morning. 2. Hypertension, stable. 3. Type 2 diabetes. Continue with same management. He seems to be stable as well. I already checked the hemoglobin A1c and it is 6.1. 4. Severe aortic stenosis, followed by Dr. Gallagher as an outpatient. As per the patient, he has not been able to go to the appointment due to financial issues. 5. Chronic pain syndrome. Continue with his home medications. 6. Gastroesophageal reflux disease. Continue proton pump inhibitors. 7. Deep vein thrombosis prophylaxis with Lovenox. 8. Depression. Continue with home medications. cc: Dell Duff MD
[2019-02-06] MEDS: LEXAPRO PO SCH (23:46)
[2019-02-07] MEDS: HUMALOG SUBQ SCH ×2 (01:06→06:24)
[2019-02-07] MEDS: NORCO-10 PO SCH ×2 (01:08→09:46)
[2019-02-07] MEDS: DUONEB (A & A) INH SCH ×3 (03:06→11:37)
[2019-02-07] MEDS: LEVAQUIN 500 MG/D5W 500 MG/100 ML IVPB IV SCH (05:21)
[2019-02-07] MEDS: PRILOSEC PO SCH (06:27)
[2019-02-07 07:16] LABS: BASO# 0.01 X1000 (0.0-0.2); BASO% 0.1 % (0.0-0.8); EOS# 0.01 X1000 (0.0-0.7); EOS% 0.1 % (0.0-10.0); HEMATOCRIT 40.3 % (42.0-52.0); HEMOGLOBIN 13.1 g/dL (14.0-18.0); IMM GRAN# 0.07 X1000 (0.0-0.04); IMM GRAN% 0.6 % (0.0-0.5); LYMPH# 2.51 X1000 (1.2-3.4); LYMPH% 22.3 % (20.5-51.1); MCH 31.8 PG (27-31); MCHC 32.5 g/dL (33-37); MCV 97.8 FL (81-99); MONO# 0.81 X1000 (0.11-0.59); MONO% 7.2 % (1.7-9.3); MPV 10.8 FL (7.4-10.4); NEUT# 7.84 X1000 (1.4-6.5); NEUT% 69.7 % (42.2-75.2); PLT 305 X1000 (130-400); RBC 4.12 XMIL (4.7-6.1); RDW 13.7 % (11.5-14.5); WBC 11.25 X1000 (4.8-10.8)
[2019-02-07 07:38] LABS: AGAP 11; BUN 24 mg/dL (8-22); CALCIUM 8.6 mg/dL (8.8-10.2); CHLORIDE 106 mmol/L (98-107); COSMO 289; ESTIMATED GFR > 60; GLUCOSE 124 mg/dL (70-104); POTASSIUM 4.5 mmol/L (3.5-5.1); SODIUM 142 mmol/L (136-145); TCO2 25 mmol/L (25-35)
[2019-02-07 08:11] VITALS: BP 15/4
[2019-02-07] MEDS ORDERED: PREDNISONE PO SCH (09:00)
[2019-02-07] MEDS: ASPIRIN PO SCH (09:45)
[2019-02-07] MEDS: BUSPAR PO SCH (09:46)
[2019-02-07] MEDS: NEURONTIN PO SCH (09:46)
[2019-02-07] MEDS: LOVENOX SUBQ SCH (09:48)
--- NOTE | 2019-02-07 14:57 | DISCHARGE SUMMARY ---
ADMISSION DATE: 02/05/2019 DISCHARGE DATE: 02/07/2019 DISCHARGE DIAGNOSES: 1. Chronic obstructive pulmonary disease exacerbation. 2. Hypertension. 3. Type 2 diabetes. 4. Severe aortic stenosis. 5. Chronic pain syndrome. 6. Gastroesophageal reflux disease. 7. Depression. PROCEDURES PERFORMED: 1. Chest x-ray dated 02/05/2019--Impression: Nonspecific left basilar infiltrate or atelectasis. 2. Echocardiogram dated 02/05/2019--Impression: Ejection fraction 65%. Severe critical aortic stenosis associated with mild aortic regurgitation. HOSPITAL COURSE: A 63-year-old male with a past medical history of hypertension, COPD, diabetes, tobacco abuse, aortic valve stenosis, who presented to the hospital because of shortness of breath for 2 days. He was admitted on 02/05/2019. The patient also described having wheezing as well as cough with a yellowish sputum. Chest x-ray did not show any significant evidence of infiltrate. The patient was evaluated in the emergency room and we admitted this patient and placed this patient on steroids, antibiotics, breathing treatment, and oxygen supplementation. The patient was feeling much better on a daily basis. I requested a new echocardiogram that showed a severe aortic stenosis. This patient has been followed as an outpatient by Dr. Gallagher, but he was missing his last appointments because he was not able to afford the consult. His COPD exacerbation is basically resolved. Today he is not wheezing. I have stopped already the IV steroids and I will continue with p.o. treatment. He was placed on antibiotics with levofloxacin which I will continue for a couple more days. This patient is still smoking and I talked to him every single day about cessation, he seems to understand. I did a home O2 evaluation and this patient requires oxygen to go home with. The discharge nurse is taking care of all of the arrangements. This patient seems to be feeling much better. He is asymptomatic today. He will be discharged home with oxygen and follow up with a hardboard factory worker, Dr. Rooney, and also follow up with Dr. Gallagher, he will need to call for a new appointment. OBJECTIVE: Vital Signs: Temperature 97.8 degrees, pulse 64, respiratory rate 15, blood pressure 121/61, oxygen saturation 100% on room air. HEENT: Head normocephalic, no trauma. PERRLA. Neck: Supple. No JVD. No masses. Central trachea. Chest: Prolonged expiratory phase with mild faint expiratory wheezing. Abdomen: Soft, nontender, nondistended. No hepatosplenomegaly. Extremities: No edema, no clubbing, no cyanosis. Neurological: The patient is awake, alert, and oriented x3. No focal deficits. LABORATORY: WBC 11.2, hemoglobin 13.1, hematocrit 40.3, platelets 305,000, sodium 142, potassium 4.5, chloride 106, bicarbonate 25, BUN 24, creatinine 1, glucose 124, calcium 8.6, hemoglobin A1c 6.1. DISCHARGE MEDICATIONS: Albuterol sulfate inhaler 2 puffs every 6 hours as needed for shortness of breath, aspirin 81 mg p.o. daily, buspirone 10 mg p.o. daily, Lexapro 20 mg p.o. at bedtime, gabapentin 300 mg p.o. t.i.d., [place] 10 one tablet p.o. t.i.d., ipratropium bromide 2 puffs of inhaler 4 times a day, levofloxacin 500 mg p.o. daily to complete 5 days, and Medrol Dosepak 4 mg p.o. as directed. cc: Dell Duff MD
== END 2019-02-07 13:13 | disposition home or self-care (01) | DRG 192 ==
LOC: ED 01:01 → SUATTDRO 03:24 → 4N 03:24
PROVIDERS: ATTEND Internal Medicine

== ENCOUNTER 2019-03-29 08:44 | Inpatient (IN) ==
--- NOTE | 2019-03-29 08:47 | PROVIDER DOCUMENTATION ---
HPI-General Adult - General Stated Complaint: SOB Time Seen by Provider: 03/29/19 08:47 Source: patient Allergies/Adverse Reactions: Patient Allergies Allergy/AdvReac Type Severity Reaction Status Date / Time Penicillins Allergy Severe choking Verified 03/29/19 09:25 Sulfa (Sulfonamide Allergy Intermediate VOMITING Verified 03/29/19 09:25 Antibiotics) latex Allergy RASH Verified 03/29/19 09:25 sulfamethoxazole AdvReac NAUSEA Verified 03/29/19 09:25 [From Bactrim] trimethoprim [From Bactrim] AdvReac NAUSEA Verified 03/29/19 09:25 Home Medications: Home Medication List Medication Instructions Recorded Confirmed Last Taken Type Gabapentin 300 mg PO TID 03/06/18 03/29/19 03/24/19 05:30 History Hydrocodone/Acetaminophen [[place] 1 tab PO TID 02/05/19 03/29/19 03/24/19 05:30 History 10-325 Tablet] Albuterol Sulfate Inhaler 2 puff INH Q6H PRN PRN #1 inhaler 02/07/19 03/29/19 03/24/19 05:45 Rx [Ventolin Hfa] - History of Present Illness -Gen Adult Nature of Presenting Problems: Pt. is 63 yom that presents with c/o SOB. He was recently at and told he needed a valve replacement. Today he can barely catch his breath. He is on home O2 at 4 LPM. Pt. denies any other complaints. Location of Pain/Injury: reports: none. denies: head, face, mouth, neck, chest, upper extremity, hand(s), abdomen, back, pelvis, genitalia, lower extremity, feet, upper body, lower body, generalized, other Pain Radiation: reports: no radiation. denies: arm(s), back, buttocks, chest, epigastric, feet, groin, jaw, flank (L), legs (lower), LLQ, LUQ, neck, perium bilical, flank (R), RLQ, RUQ, shoulder(s), scapula, scrotal, sternal notch, suprapubic, legs (upper), urethral, vaginal, other Quality of Pain: reports: none. denies: aching, indigestion, throbbing Severity: reports: moderate. denies: mild, severe Onset/Duration: reports: unsure Timing: reports: still present. denies: improving, intermittent, getting worse Context/Activities at Onset: reports: none. denies: light activity, moderate activity, vigorous activity, recent emotional stress, recent physical stress, recent trauma history, possible bad food, cold exposure, eating, out of country travel, rest, sleep, sexual activity, other Modifying Factors: improves with: nothing Associated Symptoms: reports: shortness of breath. denies: denies symptoms, anxiety, arm pain, back/neck pain, chest pain, constipation, cough, diaphoresis, diarrhea, dizziness, EENT symptoms, fatigue, fever/chills, genitourinary problems, headaches, heartburn, joint pain, loss of appetite, malaise, muscle aches, sinus congestion/drainage, nausea, rash, seizure, sensory/motor loss, pain with inspiration, swelling/mass in abdomen, syncope, vomiting, weakness, trouble walking, other Similar Symptoms Previously?: Yes Recently seen or treated by another doctor?: Yes Review of Systems - Adult - REVIEW OF SYSTEMS - ADULT Constitutional: reports: no symptoms reported Eyes: reports: no symptoms reported Ears, Nose, Mouth & Throat: reports: no symptoms reported Cardiovascular: reports: no symptoms reported Respiratory: reports: see HPI, shortness of breath. denies: cough, pleurisy, wheezing Gastrointestinal: reports: no symptoms reported Genitourinary: reports: no symptoms reported Musculoskeletal: reports: no symptoms reported Integumentary: reports: no symptoms reported Neurological: reports: no symptoms reported Psychiatric: reports: no symptoms reported Past History - Adult - PAST MEDICAL HISTORY-ADULT Review of Records: reports: Old Records Reviewed, Nursing Assessment Review, Medications Reviewed, Social history reviewed & non-contributory. Major Childhood Illnesses: reports: denies history Cardiovascular: reports: HTN, heart valve problem Respiratory: reports: COPD Gastrointestinal: reports: GERD Obstetrical/Gynecological: reports: denies history Genitourinary: reports: denies history Musculoskeletal: reports: arthritis (chronic), chronic pain Neurological: reports: denies history Endocrine/Immune: reports: Diabetes Other Conditions: reports: denies history - PRIOR SURGERIES/PROCEDURES Surgical/Procedure History: reports: cholecystectomy, hernia repair, joint replacement (L&R total hip replacement) - PRIOR HOSPITALIZATIONS Prior Hospitalizations: reports: none - IMMUNIZATION STATUS Childhood Immunizations: See Nurse Assessment Flu Vaccine: See Nurse Assessment - FAMILY HISTORY Family History: reviewed, not pertinent - SOCIAL HISTORY Smoking: cigarettes, greater than 1 pack/day Provider spent 3-5 mins advising pt. on dangers of tobacco.: Discussed manners to quit use, and f/u contacts for add'l counseling. Physical Exam-General - PHYSICAL EXAM-ADULT Initial Vital Signs Reviewed: Yes - CONSTITUTIONAL General Appearance: alert, moderate distress, thin. negative: anxious, obtunded, combative - EYES Eyes: PERRL/EOMI, pink conjunctivae - HEAD, EARS, NOSE, MOUTH & THROAT HENMT: normocephalic/atraumatic, moist mucous membranes - NECK Neck: non-tender, full range of motion, supple, normal inspection - RESPIRATORY Respiratory: decreased breath sounds, wheezing, increased rate. negative: crackles, rales, rhonchi - CARDIOVASCULAR Cardiovascular: normal peripheral pulses, regular rate, rhythm, no edema - GASTROINTESTINAL (ABDOMEN) Abdominal Exam: normal bowel sounds, non tender, soft - LYMPHATIC Lymphatic: no adenopathy - MUSCULOSKELETAL Back Exam: normal inspection, no CVA tenderness, no vertebral tenderness Extremity: normal range of motion, non-tender, normal inspection Peripheral Pulses: radial (R): 2+, radial (L): 2+ - SKIN Integumentary: normal color, normal turgor, warm/dry - NEUROLOGIC Neurologic: grossly normal, no motor/sensory deficits - PSYCHIATRIC Psych/Mental Status: normal mood/affect, normal thought content, normal thought process, oriented x 3. negative: anxious, paranoid, tearful Progress - PLAN OF CARE/RESULTS Result Diagrams: 03/29/19 09:15 03/29/19 09:15 - EKG 1 Time of EKG reading by physician:: 08:59 EKG Read and Signed by:: Jose Kenyon EKG Interpretation (*Must complete 3 of following elements*): Normal Rate: 63 Rhythm: NSR Antonito: normal QRS: normal MN Interval: normal ST Wave: normal - XRAY 1 XRAY Study: Chest ([facility] - [address], [address], [place] [address] [facility] - [address] [place] [address] Department of Imaging Patient: NORMA RAEADM Date: 03/29/19MR#: [id number] : 1955DM Status: PRE ERAcct#: [id number] Age/Sex: 63/MRoom/Bed: Loc: ED Ordering Physician: Zenobia Mancilla Family Physician: None,PCP Reason for Procedure: SOB Signed EXAM: CHEST-PORTABLE 03/29/2019 HISTORY: SOB TECHNIQUE: AP portable upright at 0901 COMMENT: There is minimal basilar atelectasis over the left hemidiaphragm. The inspiration is less optimal than on 03/23/2019. IMPRESSION: Left lower lobe basilar atelectasis. Electronically signed by Rahul Taylor 03/29/2019 9:11 AM 03/29/19910 Interpreting Physician: Rahul Taylor MD Dictated Date/Time: 03/29/19909 cc: Zenobia Mancilla; None,PCP) XRAY Interpretation: See note - CT/MRI 1 CT Study: Thorax ([facility] - [address] [facility], [address] [phone] [facility] - [address] [place] [address] Department of Imaging Patient: NORMA RAE Date: 03/29/19MR#: [id number] : 1955DM Status: REG ERAcct#: [id number] Age/Sex: 63/MRoom/Bed: Loc: ED Ordering Physician: Zenobia Mancilla Family Physician: None,PCP Reason for Procedure: SOB ___ Signed EXAM: CT ANGIOGRM PULMONARY ARTERIES 03/29/2019 HISTORY: SOB TECHNIQUE: This exam was performed using automated exposure control, adjustment of mA or kV according to patient size, and/or use of iterative reconstruction technique. COMMENT: 3-D MIPS were performed. The current study is compared with 09/02/2011 and that of 07/23/2017. There is opacification of some of the peripheral branches of the pulmonary arteries in the right middle lobe and right lower lobe and there is a clearly defined filling defect in the left lower lobe on image 75. This was not present at the time the previous study. There is some superior mediastinal adenopathy with one node on image 19 measuring over 2 cm and a right paratracheal node on image 36 measuring over 18 mm. These findings were not present at the time of the previous study. There is an enlarged node in the precarinal region measuring over 2 cm in long axis. There is some subcarinal adenopathy which was also not previously present. There is right hilar adenopathy which was not present previously. There is also some left hilar adenopathy. There is severe COPD. There is a small pleural based nodule present in the right lower lobe on image 60 which was apparently present at the time the previous study. This measures 7 mm in greatest dimension. There is a nodule on image 65 laterally in the right lower lobe which may also have been present previously although the lungs were not as well-expanded on the previous study. This measures almost 7 mm in long axis. There are numerous calcified granulomata in the left lower lobe and left upper lobe. There is no evidence of acute bony abnormality. There is a left adrenal nodule measuring 18 x 15 mm. This has not changed significantly since 07/23/2017. IMPRESSION: 1. Minimal peripheral pulmonary emboli bilaterally. 2. New mediastinal and hilar adenopathy. Stable right lower lobe pulmonary nodules. 3. COPD. Electronically signed by Rahul Taylor 03/29/2019 12:28 PM 03/29/19 2738 Interpreting Physician: Rahul Taylor MD Dictated Date/Time: 03/29/19 121 cc: Zenobia Mancilla; None,PCP) CT Results: See note - CONSULTS/PCP/HOSPITALIST Notification #1 *Consult/PCP/Hospitalist*: Dr. Vivar hospitilist at Time Discussed: 13:47 Reason/Comments: transfer Consult Disposition: other (Pt. is only scheduled for evaluation for heart valve replacement and she feels we can manage at [facility].) #2 Consult: Stephany for Dr. Sky Time Discussed: 14:00 Reason/Comments: Admission Consult Disposition: Will see in ED, Admit Departure - Departure Date of Disposition Decision: 03/29/19 Time of Disposition Decision: 12:49 DIAGNOSIS: COPD exacerbation, Tobacco use disorder, Anxiety about health, Elevated d-dimer Pulmonary emboli Qualifiers: Pulmonary embolism type: unspecified Chronicity: unspecified Acute cor pu lmonale presence: unspecified Qualified Code(s): I26.99 - Other pulmonary embolism without acute cor pulmonale Disposition: ADMITTED INPATIENT 09 Certified Medical Emergency: Emergent Condition: Stable Referrals and Follow-Ups: None,PCP [Primary Care Provider] - - Critical Care Note This patient required my direct & personal management of CC.: Yes Total Time (mins): 35 Critical Care Statement: This patient required my direct personal management to treat or rule out processes, the absence of which, could potentiallly result in sudden, clinically significant life or limb threatening deterioration. Attestation - Physician/ ROSALIA Attestation Patient care was provided by Advanced Practice Provider:: Yes Advanced Practice Provider:: Zenobia Mancilla Advanced Practice Provider documentation review:: The Mid-level provider documentation, treatment plan and medical decision making was reviewed by the physician who agrees with all treatment and medical decision making by the P. The physician spent face to face time with patient:: No Advanced Practice Provider documentation review:: Supervising physician onsite and consulted in the evaluation and care of this patient. The physician did not have a face to face encounter with the patient.
[2019-03-29] MEDS ORDERED: SOLU-MEDROL IV ONE (08:55)
[2019-03-29] MEDS ORDERED: DUONEB (A & A) INH ONE ×2 (08:55→14:04)
--- NOTE | 2019-03-29 09:14 | Diag Imaging Result Doc PS360 ---
EXAM: CHEST-PORTABLE 03/29/2019 HISTORY: SOB TECHNIQUE: AP portable upright at 0901 COMMENT: There is minimal basilar atelectasis over the left hemidiaphragm. The inspiration is less optimal than on 03/23/2019. IMPRESSION: Left lower lobe basilar atelectasis. Electronically signed by Rahul Taylor 03/29/2019 9:11 AM
[2019-03-29 09:25] LABS: ALLEN TEST YES; BLOOD TYPE ARTERIAL; HCO3-(ACT) 26.5 mmoll (20.0-26.0); METHB 0.8 % (0.0-1.5); O2(CT) 16.8 mL/dL (15.0-23.0); O2HB 96.5 % (95.0-99.0); PCO2(98.6) 40 mmHg (35-45); PO2(98.6) 143 mmHg (60-100); SAMPLE BLOOD; SAO2 99.6 % (95.0-100.0); THB 12.2 g/dL (11.5-17.4); pH(98.6) 7.43 (7.35-7.45)
[2019-03-29 09:28] LABS: MODALITY CANNULA
[2019-03-29 09:36] LABS: BASO# 0.06 X1000 (0.0-0.2); BASO% 0.8 % (0.0-0.8); EOS# 0.36 X1000 (0.0-0.7); EOS% 4.8 % (0.0-10.0); HEMATOCRIT 36.8 % (42.0-52.0); HEMOGLOBIN 11.7 g/dL (14.0-18.0); IMM GRAN# 0.03 X1000 (0.0-0.04); IMM GRAN% 0.4 % (0.0-0.5); LYMPH# 1.24 X1000 (1.2-3.4); LYMPH% 16.5 % (20.5-51.1); MCH 30.8 PG (27-31); MCHC 31.8 g/dL (33-37); MCV 96.8 FL (81-99); MONO# 0.79 X1000 (0.11-0.59); MONO% 10.5 % (1.7-9.3); MPV 10.3 FL (7.4-10.4); NEUT# 5.03 X1000 (1.4-6.5); PLT 295 X1000 (130-400); RDW 13.1 % (11.5-14.5); WBC 7.51 X1000 (4.8-10.8)
[2019-03-29 09:58] LABS: INR 1.11; PROTIME 14.5 Seconds (11.0-16.0)
[2019-03-29 09:59] LABS: PTT 31.8 Seconds (22.3-41.8)
[2019-03-29 10:02] LABS: AGAP 9; ALB/GLOB RATIO 1.5; ALBUMIN 3.8 g/dL (3.5-5.0); ALKALINE PHOSPHATASE 85 U/L (32-122); BUN 14 mg/dL (8-22); CHLORIDE 99 mmol/L (98-107); CK PROFILE 82 U/L (24-204); COSMO 275; CREATININE 0.9 mg/dL (0.7-1.2); ESTIMATED GFR > 60; GLUCOSE 114 mg/dL (70-104); GOT 18 U/L (10-34); GPT 17 U/L (10-44); POTASSIUM 4.7 mmol/L (3.5-5.1); SODIUM 137 mmol/L (136-145); TCO2 29 mmol/L (25-35); TOTAL BILIRUBIN 0.32 mg/dL (0.20-1.00); TOTAL PROTEIN 6.4 g/dL (6.3-8.3)
[2019-03-29 11:12] LABS: URINE SOURCE CLEAN CATCH
[2019-03-29 11:16] LABS: BILIRUBIN URINE NEGATIVE (NEGATIVE); BLOOD URINE NEGATIVE (NEGATIVE); COLOR YELLOW; GLUCOSE URINE NEGATIVE (NEGATIVE); KETONE URINE NEGATIVE (NEGATIVE); LEUKOCYTES URINE NEGATIVE (NEGATIVE); NITRITE URINE NEGATIVE (NEGATIVE); PH URINE 6.5; PROTEIN URINE NEGATIVE (NEGATIVE); TURBIDITY URINE CLEAR (CLEAR); UR EPITHELIAL CELLS <10 /HPF (<10); URINE BACTERIA NEGATIVE /HPF; URINE RBC <10 /HPF (<10); URINE WBC <10 /HPF (<10); UROBILINOGEN URINE NORMAL (NORMAL)
[2019-03-29] MEDS ORDERED: NICODERM PATCH TD ONE (12:28)
[2019-03-29] MEDS ORDERED: ATIVAN IV ONE (12:28)
--- NOTE | 2019-03-29 12:31 | Diag Imaging Result Doc PS360 ---
EXAM: CT ANGIOGRM PULMONARY ARTERIES 03/29/2019 HISTORY: SOB TECHNIQUE: This exam was performed using automated exposure control, adjustment of mA or kV according to patient size, and/or use of iterative reconstruction technique. COMMENT: 3-D MIPS were performed. The current study is compared with 09/02/2011 and that of 07/23/2017. There is opacification of some of the peripheral branches of the pulmonary arteries in the right middle lobe and right lower lobe and there is a clearly defined filling defect in the left lower lobe on image 75. This was not present at the time the previous study. There is some superior mediastinal adenopathy with one node on image 19 measuring over 2 cm and a right paratracheal node on image 36 measuring over 18 mm. These findings were not present at the time of the previous study. There is an enlarged node in the precarinal region measuring over 2 cm in long axis. There is some subcarinal adenopathy which was also not previously present. There is right hilar adenopathy which was not present previously. There is also some left hilar adenopathy. There is severe COPD. There is a small pleural based nodule present in the right lower lobe on image 60 which was apparently present at the time the previous study. This measures 7 mm in greatest dimension. There is a nodule on image 65 laterally in the right lower lobe which may also have been present previously although the lungs were not as well-expanded on the previous study. This measures almost 7 mm in long axis. There are numerous calcified granulomata in the left lower lobe and left upper lobe. There is no evidence of acute bony abnormality. There is a left adrenal nodule measuring 18 x 15 mm. This has not changed significantly since 07/23/2017. IMPRESSION: 1. Minimal peripheral pulmonary emboli bilaterally. 2. New mediastinal and hilar adenopathy. Stable right lower lobe pulmonary nodules. 3. COPD. Electronically signed by Rahul Taylor 03/29/2019 12:28 PM
[2019-03-29] MEDS ORDERED: LOVENOX 1 MG/KG SUBQ ONE (13:59)
[2019-03-29] MEDS ORDERED: LOVENOX SUBQ ONE (14:30)
--- NOTE | 2019-03-29 15:07 | HISTORY AND PHYSICAL ---
PRIMARY CARE PHYSICIAN: Listed as none. CHIEF COMPLAINT: Worsening shortness of breath since having a heart catheterization on 03/24/2019. Despite using home O2, it progressively worsened. HISTORY OF PRESENTING ILLNESS: This is a 63-year-old, male, who presents to [facility] with complaints of worsening shortness of breath that has progressively worsened since he had a heart catheterization on 03/24/2019. He uses home O2 at 4 L via nasal cannula, and has severe COPD, but continues to smoke a half a pack a day. Again, he had a heart catheterization on 03/24/2019 that showed recommendations of being referred to an armorer technician in [place] for consideration of a TAVR, which he has an appointment set up this upcoming , 04/02/2019. He also was noted during that heart catheterization to have pulmonary hypertension. Today, his O2 saturation was 100% on 4 L. His laboratory data showed a D-dimer of greater than 20, so we did a pulmonary arteriogram that showed minimal peripheral pulmonary emboli bilaterally. He is noted to be wheezing throughout his entire lung rodriguez, so he will be admitted to the PVC unit for further evaluation and treatment. PAST MEDICAL HISTORY: Severe COPD, hypertension, diabetes type 2, valvular heart disease, GERD, chronic pain. PAST SURGICAL HISTORY: Bilateral hip replacement, cholecystectomy, and appendectomy. FAMILY HISTORY: Reviewed and noncontributory. SOCIAL HISTORY: He currently lives with family. Smokes a half a pack of cigarettes a day and has done so since he was 12 years old. Denied any alcohol or illicit drug use. ALLERGIES: Penicillin, sulfa, latex. HOME MEDICATIONS: He takes a Ventolin inhaler 2 puffs every 6 hours p.r.n., gabapentin 300 mg p.o. t.i.d., [place] 10 one p.o. t.i.d. IMAGING AND LABORATORY DATA: Laboratory data showed a white blood cell count of 7.51, hemoglobin 11.7, hematocrit 36.8, platelets 295,000. PT and INR 14.5 and 1.11, with a D-dimer of greater than 20. ABG showed a pH of 7.43, pCO2 of 40, PO2 of 143, pCO2 of 26.5, and this was on 4 L via nasal cannula. Sodium 137, potassium 4.7, chloride 99, CO2 of 29, BUN of 14, creatinine 0.9, glucose 114, creatine kinase of 82. Troponin T high-sensitivity of 13. ProBNP of 183. Urinalysis was negative. Chest x-ray showed a left lower lobe basilar atelectasis. Pulmonary arteriogram showed minimal peripheral pulmonary emboli bilaterally, a new mediastinal and hilar adenopathy, stable right lower lobe pulmonary nodule, and COPD. REVIEW OF SYSTEMS: He denied any fever, chills, blurred vision, dizziness, chest pain. He has a nonproductive cough, shortness of breath, wheezing. Denied any abdominal pain, constipation, diarrhea, burning or hurting with urination. PHYSICAL EXAMINATION: VITAL SIGNS: On arrival, he has a temperature of 97.6 degrees, pulse 65, respirations 26, blood pressure 123/65, saturating 97% on room air. GENERAL: This is a 63-year-old, male, who is lying in the bed and answers questions appropriately. HEENT: Normocephalic, atraumatic. Normal ENT inspection. Oropharynx and nares are clear. Eyes: Pupils are equal, round, and reactive to light and accommodation. Extraocular movements are intact. NECK: Normal inspection. Normal range of motion. LUNGS: Wheezing throughout entire lung rodriguez. Equal lung expansion. Chest wall movement noted. HEART: Regular rate and rhythm. No murmurs, rubs, or gallops. ABDOMEN: Soft, nontender, nondistended. Bowel sounds are present x4 quadrants. MUSCULOSKELETAL: He had 5/5 strength x4 extremities. NEUROLOGICAL: The cranial nerves II through XII appear grossly intact. ASSESSMENT: 1. Dyspnea. 2. Elevated D-dimer. 3. Bilateral peripheral pulmonary emboli. 4. Tobacco abuse. 5. Severe chronic obstructive pulmonary disease. PLAN: He will be admitted to the PVC unit, placed on telemetry. We will check a bilateral lower extremity venous Doppler, do a hypercoagulable workup, check an echocardiogram, place on a diabetic diet. Will place on Lovenox 1 mg/kg subcutaneously every 12 hours, continue his home medications, give him a nicotine patch 21 mg transdermally daily. Recheck CBC and BMP. Further orders after seen by attending. Dictated by MARYANN Hooks for Dell Duff MD cc: MARYANN Hooks MD
[2019-03-29] MEDS ORDERED: VENTOLIN HFA INH PRN (15:35)
[2019-03-29] MEDS ORDERED: ZOFRAN IV PRN (15:35)
[2019-03-29] MEDS ORDERED: TYLENOL PO PRN (15:35)
--- NOTE | 2019-03-29 16:55 | HISTORY AND PHYSICAL ---
ADDENDUM: The patient was seen and examined by me [id number]. All the laboratory, vital signs, and images were reviewed. The patient presented to the emergency department with shortness of breath. CT angiogram showed pulmonary embolism bilaterally. He has a history of severe COPD and now he is in exacerbation. He is wheezing bilaterally. He seems to be in mild to moderate distress. He is still smoking and he is on home O2. I had a large conversation with this patient about tobacco use and abuse, I had the same conversation before with this patient, but he never stops smoking, but I will continue with daily cessation education. He has been short of breath since yesterday night. He does not have a unit assistant and he follows up in a walking clinic. I will put this patient back on his home medications. We will put this patient on Lovenox twice a day 1 mg/kg and I will need to use some steroids because of his COPD exacerbation. I agree with the rest of the nurse practitioner's assessment and plan. cc: Dell Duff MD
[2019-03-29] MEDS ORDERED: NEURONTIN PO SCH (17:00)
[2019-03-29] MEDS ORDERED: NORCO-10 PO SCH (17:00)
--- NOTE | 2019-03-29 17:20 | EKG Report ---
Test Performed on : 03/29/2019 08:57:23 AM Test Reason : SOB Blood Pressure : / mmHG Vent. Rate : 063 BPM Atrial Rate : 063 BPM P-R Int : 166 ms QRS Dur : 082 ms QT Int : 444 ms P-R-T Axes : 088 063 033 degrees QTc Int : 454 ms Normal sinus rhythm. Normal ECG When compared with ECG of 23-MAR-2019 13:49, No significant change was found Unconfirmed Result
[2019-03-29] MEDS ORDERED: SOLU-MEDROL IV SCH (21:00)
[2019-03-30] MEDS: LOVENOX SUBQ SCH ×2 (02:28→15:41)
[2019-03-30] MEDS ORDERED: NORCO-10 PO ONE (04:51)
[2019-03-30 07:12] LABS: BASO# 0.01 X1000 (0.0-0.2); BASO% 0.1 % (0.0-0.8); HEMATOCRIT 37.1 % (42.0-52.0); HEMOGLOBIN 11.9 g/dL (14.0-18.0); IMM GRAN# 0.02 X1000 (0.0-0.04); IMM GRAN% 0.2 % (0.0-0.5); LYMPH# 0.86 X1000 (1.2-3.4); LYMPH% 7.6 % (20.5-51.1); MCH 30.9 PG (27-31); MCHC 32.1 g/dL (33-37); MCV 96.4 FL (81-99); MONO# 0.61 X1000 (0.11-0.59); MONO% 5.4 % (1.7-9.3); MPV 10.5 FL (7.4-10.4); NEUT# 9.79 X1000 (1.4-6.5); NEUT% 86.7 % (42.2-75.2); PLT 371 X1000 (130-400); RBC 3.85 XMIL (4.7-6.1); RDW 12.9 % (11.5-14.5); WBC 11.29 X1000 (4.8-10.8)
--- NOTE | 2019-03-30 07:14 | PROGRESS NOTE ---
DATE: 03/30/2019 SUBJECTIVE: This patient is feeling better today. He is still having some wheezing but compared with yesterday, is remarkably better. I will decrease the dose of the steroids today to 20 mg IV twice a day instead of 40 mg twice a day. I believe he can be transferred to the medical floor. We had, again, a large conversation about tobacco abuse and he seems to understand. As per the patient, he will stop smoking. Pending echocardiogram and venous ultrasound as well as laboratory at this moment. OBJECTIVE: Vital Signs: Temperature 97.6 degrees, pulse 65, respiratory rate 16, blood pressure 106/50, oxygen saturation 100% on 3 L of nasal cannula. HEENT: Head normocephalic. No trauma. PERRLA. Neck: Supple. No JVD. No masses. Central trachea. Chest: Decreased breath sounds globally with prolonged expiratory phase and faint end-expiratory wheezing. Abdomen: Soft, nontender, nondistended. No hepatosplenomegaly. Extremities: No edema, no clubbing, no cyanosis. Neurological Examination: The patient is awake and alert. He is oriented x3. No focal deficits. Laboratory: Pending lab work at this moment. ASSESSMENT AND PLAN: 1. Bilateral pulmonary emboli. I will continue for now with Lovenox twice a day at 1 mg/kg. I already asked hematology department to evaluate this patient. This patient did not travel recently and he is not sedentary so I do not have an excuse for these pulmonary emboli other than tobacco abuse which may increase the risk of blood clots. This patient has been highly advised against tobacco use. I will continue with daily cessation education. 2. Chronic obstructive pulmonary disease exacerbation, on home oxygen. He is chronically hypoxemic. Continue with oxygen supplementation. I will decrease the dose of the steroids because this patient is getting better. 3. Tobacco use and abuse. This patient has been highly advised against tobacco use. I will continue with daily cessation education. 4. Hypertension, stable. Continue with the same management. 5. Type 2 diabetes, seems to be controlled. Continue with the same treatment. 6. Chronic pain syndrome. Continue with his home dose of [place]. 7. Gastroesophageal reflux disease. Continue with proton pump inhibitors. 8. Severe aortic stenosis. This has been monitored by the cardiology department before. We will monitor for now. 9. Depression. He is going to bring his home medication. He does not remember the name of his medication but we will follow. cc: Dell Duff MD
[2019-03-30 07:26] LABS: AGAP 10; BUN 18 mg/dL (8-22); CALCIUM 9.1 mg/dL (8.8-10.2); CHLORIDE 104 mmol/L (98-107); COSMO 284; CREATININE 0.8 mg/dL (0.7-1.2); ESTIMATED GFR > 60; GLUCOSE 151 mg/dL (70-104); POTASSIUM 4.6 mmol/L (3.5-5.1); SODIUM 140 mmol/L (136-145); TCO2 26 mmol/L (25-35)
[2019-03-30 08:38] LABS: LARGE PLATELETS 1+; LYMPHS 18 % (21-51); SEGS 82 % (42-75)
[2019-03-30] MEDS: NICODERM PATCH TD SCH (08:38)
[2019-03-30] MEDS: SOLU-MEDROL IV SCH ×2 (08:38→20:51)
[2019-03-30] MEDS: NORCO-10 PO SCH ×2 (08:39→17:53)
[2019-03-30] MEDS: NEURONTIN PO SCH ×2 (08:39→17:53)
[2019-03-30] MEDS: HUMULIN R SUBQ SCH ×3 (12:09→20:50)
--- NOTE | 2019-03-30 13:52 | HEMO/ONC CONSULTATION ---
DATE: 03/30/2019 REASON FOR CONSULTATION: Bilateral PE. HISTORY OF PRESENT ILLNESS: This is a 63-year-old male with a long history of cigarette smoking and COPD who presents to [facility] ER with worsening shortness of breath that has progressively gotten worse. He states he had a heart catheterization on 03/24/2019. He is normally on home O2 at 4 L via nasal cannula as he has severe COPD. He also continues to smoke half a pack of cigarettes a day. Evaluation in the ER showed D-dimer greater than 20. Pulmonary arteriogram shows minimal peripheral pulmonary emboli bilaterally. He was noted to be wheezing throughout his entire lung field and he was admitted for further evaluation. The patient was started on Lovenox twice a day and has already begun to show improvement. PAST MEDICAL HISTORY: Severe COPD, hypertension, type 2 diabetes, valvular heart disease, GERD, chronic pain, tobacco abuse. PAST SURGICAL HISTORY: Bilateral hip replacement, cholecystectomy, and appendectomy. SOCIAL HISTORY: He has smoked 1/2 pack of cigarettes a day since he was 12 years old. He denies alcohol or illicit drug use. ALLERGIES: Penicillin, sulfa, latex. HOME MEDICATIONS: Home oxygen, Ventolin inhaler, gabapentin, [place]. REVIEW OF SYSTEMS: As of this morning, the patient denies any pain, shortness of breath is at minimum. All other review of systems are negative. Vital Signs: Temperature 97.6 degrees, pulse rate 69, respiratory rate 17, blood pressure 115/57, O2 saturation 100%. He is on 3 L via nasal cannula. He is in 2/10 neck and back pain. General: He is in no acute distress. HEENT: Sclerae anicteric. PERRLA. Oral mucosa is normal. Respiratory: Diminished breath sounds throughout. Wheezing noted. Cardiovascular: Normal S1, S2. Heart rate and rhythm regular. Abdomen: Soft, nontender, nondistended. No hepatosplenomegaly noted. Extremities: No lower extremity edema noted. Neurological: Alert and oriented x3. No focal motor deficits noted. LABORATORY: WBC is 11.29, hemoglobin 11.9, hematocrit 37.1, platelet count 371,010. Sodium 140, potassium 4.6, creatinine 0.8, homocystine 7.7. ASSESSMENT AND PLAN: 1. Bilateral pulmonary emboli. Continue the patient on Lovenox twice a day 1 mg/kg. Lower extremity ultrasound results pending. We will continue to evaluate the patient's lab values as the patient's plan of care progresses. 2. Chronic obstructive pulmonary disease exacerbation. Continue medical management. 3. Tobacco abuse. The patient has smoked for 50 years. He states he is quitting. Medical management can offer any assistance if he requests. 4. Hilar and mediastinal lymphadenopathy: Will follow and work up outpatient. Dictated by MARYANN Juárez for Gautam Amin MD cc: Gautam Amin MD MTDD
--- NOTE | 2019-03-30 17:00 | ECHO REPORT ---
ORDER DATE: 03/30/2019 INTERPRETING PHYSICIAN: Dr. Nasir Dietz ECHOCARDIOGRAPHIC MEASUREMENTS: 1. Interventricular septum: 1.1 cm. 2. Left ventricular posterior wall: 1.1 cm. 3. Diastolic diameter: 4.5 cm. 4. Left atrium: 3.6 cm. 5. Aortic root: 3.0 cm. SUMMARY OF THE 2-DIMENSIONAL IMAGIN. There is mild left atrial enlargement. 2. Normal left ventricular cavity size. Estimated ejection fraction of 60% to 65%. 3. Normal right ventricular cavity size and function. 4. Aortic valve leaflets are calcified. 5. Mitral valve was normal. 6. Tricuspid valve was normal. 7. There is mild mitral regurgitation. 8. Peak velocity across the aortic valve was 4.5 m/sec with a maximum gradient of 18 mmHg, mean gradient of 45 mmHg. 9. Aortic valve area by VDI was 0.6 cm2. 10. There is severe aortic stenosis associated with moderate aortic regurgitation. 11. There is mild tricuspid regurgitation. Peak velocity across the tricuspid valve was 2.4 m/sec. 12. Pulmonary artery systolic pressure of 32 mmHg. 13. There is no pericardial effusion or obvious intracardiac mass or thrombus seen. 14. Recommend transesophageal echocardiogram to better evaluate aortic valve area as by planimetry and visualization the aortic valve area appeared to be larger than 0.6 cm2. 15. There is no pericardial effusion. cc: MD Stephany Patterson CRNP
--- NOTE | 2019-03-30 22:50 | Extremity Venous Study ---
PROCEDURE NAME: Venous U/S Bilateral Legs - 03/30/2019 REFERRING PHYSICIAN: Mary. INTERPRETING PHYSICIAN: Jose Valles MD MAPPER: Not identified. INDICATIONS: The patient has had bilateral PE. FINDINGS: Bilateral lower extremity venous images accomplished. The common femoral, superficial femoral, deep femoral, popliteal, posterior tibial, peroneal, and greater saphenous are imaged bilaterally. All veins are compressible. INTERPRETATION: No evidence of deep or superficial venous thrombosis in either lower extremity in the veins identified. cc: MD Stephany Dominguez CRNP
[2019-03-31] MEDS: NORCO-10 PO SCH ×2 (01:31→08:47)
[2019-03-31] MEDS: NEURONTIN PO SCH ×2 (01:31→08:49)
[2019-03-31] MEDS: LOVENOX SUBQ SCH (03:20)
[2019-03-31] MEDS: HUMULIN R SUBQ SCH ×2 (07:17→10:37)
[2019-03-31 07:59] LABS: HEMATOCRIT 38.7 % (42.0-52.0); HEMOGLOBIN 12.4 g/dL (14.0-18.0); MCH 31.7 PG (27-31); MPV 10.6 FL (7.4-10.4); RBC 3.91 XMIL (4.7-6.1); RDW 13.4 % (11.5-14.5); WBC 13.46 X1000 (4.8-10.8)
[2019-03-31 08:41] LABS: AGAP 10; BUN 22 mg/dL (8-22); CHLORIDE 101 mmol/L (98-107); COSMO 286; ESTIMATED GFR > 60; GLUCOSE 154 mg/dL (70-104); POTASSIUM 4.8 mmol/L (3.5-5.1); SODIUM 140 mmol/L (136-145); TCO2 29 mmol/L (25-35)
[2019-03-31] MEDS: SOLU-MEDROL IV SCH (08:47)
[2019-03-31] MEDS: NICODERM PATCH TD SCH (08:49)
[2019-03-31 11:51] VITALS: BP 103/44
--- NOTE | 2019-03-31 20:52 | HEMO/ONC PROGRESS NOTE ---
DATE: 03/31/2019 SUBJECTIVE: Mr. Jones is comfortable in his bed this morning. He believes he is going home today. He states he feels a lot better. He is not short of breath or in any pain. He denies any wheezes or cough. He had a good night's sleep and has no complaints. OBJECTIVE: Vital Signs: Temperature 97.6 degrees, pulse rate 68, blood pressure 19, respiratory rate 19, blood pressure 103/44, O2 saturation 99% on nasal cannula at 4 L. He is in 5/10 back pain. General: The patient is in no acute distress. HEENT: Sclerae anicteric. PERRLA. Oral mucosa is normal. Respiratory: Diminished lung sounds. Few wheezes noted. Cardiovascular: Normal S1, S2. Heart rate and rhythm regular. Abdomen: Soft, nontender, nondistended. Extremities: No lower extremity edema noted. Neurological: Alert and oriented x3. No focal motor deficits noted. LABORATORY DATA: WBCs 13.46, hemoglobin 12.4, hematocrit 38.7, platelet count 402,000. Homocystine level 7.7. ASSESSMENT AND PLAN: 1. Bilateral pulmonary emboli. The patient will be discharged home today. He will come by the office and picker and sorter load and unload a Xarelto starter kit that explains he will take 15 mg twice a day for 3 weeks, then switch to 20 mg. We will follow up with the patient in the office in 1 to 2 weeks. 2. Chronic obstructive pulmonary disease exacerbation. Patient was discharged for medical management per their orders. He will follow up with his PCP. He was given prescription for inhalers. Tobacco abuse. The patient was canceled. He said he has smoked for 50 years, and he is going to quit. 3. Hilar and mediastinal lymphadenopathy. We will workup and follow up with him in outpatient. Dictated by MARYANN Juárez for Gautam Amin MD cc: Gautam Amin MD
--- NOTE | 2019-04-01 05:49 | DISCHARGE SUMMARY ---
ADMISSION DATE: 03/29/2019 DISCHARGE DATE: 03/31/2019 DISCHARGE DIAGNOSES: 1. Bilateral pulmonary emboli. 2. Chronic obstructive pulmonary disease with mild exacerbation. 3. Tobacco use and abuse. 4. Hypertension. 5. Diabetes. 6. Chronic pain syndrome. 7. Gastroesophageal reflux disease. 8. Severe aortic stenosis. 9. Depression. PROCEDURES PERFORMED: 1. Chest x-ray dated 03/29/2019. Impression: Left lower lobe bibasilar atelectasis. 2. CT angiogram dated 03/29/2019. Impression: Minimal peripheral pulmonary emboli bilaterally, new mediastinal and hilar adenopathy, stable right lower lobe pulmonary nodules, and COPD. 3. Extremity venous ultrasound dated 03/30/2019. No evidence off superficial venous thrombosis in either lower extremity in the veins identified. No DVT. CONSULTATIONS: Dr. Amin Hematology/Oncology Department. HOSPITAL COURSE: A 63-year-old male admitted on 03/29/2019 who presented to the hospital complaining of worsening shortness of breath that has been progressively getting worse since he had a heart catheterization on 03/24/2019. He is on home O2. He has severe COPD, and he is still smoking at least half a pack a day. It looks like he has been recommended to be transferred to an tappet adjuster in [place] for consideration of a TAVR. He has an appointment for that on 04/02/2019. He also has pulmonary hypertension. When they examined the patient in the emergency department, they found out that this patient's D-dimer was greater than 20. CT scan of the chest with contrast showed a bilateral pulmonary emboli, and also she has been wheezing throughout. She was placed on steroids. She was placed on anticoagulation. She was transferred to the PVC unit. We will continue with oxygen supplementation. This patient the next day was much better, and the steroids were decreased, and the same today. He was evaluated by Hematology/Oncology Department, who recommended to start this patient on Lovenox. They started treatment, it is going to be provided by Dr. Amin. Upon discharge, the patient needs to go to Dr. Amin's office to get the treatment. During this hospitalization, he was placed on Lovenox twice a day 1 mg/kg. He is not wheezing today. He is feeling better. I do believe he is stable enough to go home. He needs to follow up with the tappet adjuster in 2 days. DISCHARGE EXAMINATION: Vital Signs: Temperature 97.6 degrees, pulse 68, respiratory rate 19, blood pressure 103/44, and oxygen saturation 99 on 4 L of nasal cannula. HEENT: Head normocephalic. No trauma. PERRLA. Neck: Supple. No JVD. No masses. Central trachea. Chest: Clear to auscultation. There are some prolonged expiratory phase. Mild and faint expiratory wheezing. Abdomen: Soft, nontender, and nondistended. No hepatosplenomegaly. Extremities: No edema. No clubbing. No cyanosis. Neurological: The patient is awake and alert. She is oriented x3. No focal deficits. LABORATORY: WBC 13.4, hemoglobin 12.4, hematocrit 38.7, and platelets 402,000. Sodium 140, potassium 4.8, chloride 101, bicarbonate 29, BUN 22, creatinine 1, glucose 154, and calcium 9. DISCHARGE MEDICATIONS: 1. Albuterol sulfate inhaler 2 puff inhaler q.6 hours as needed. 2. Gabapentin 300 mg p.o. t.i.d. 3. [place] 10 one tablet p.o. t.i.d. 4. Combivent Respimat inhaler 1 puff every 6 hours. 5. Xarelto 50 mg p.o. b.i.d. for 21 days and then 20 mg p.o. daily, but they started [*]with this treatment. It is going to be provided by Dr. Amin. 6. Everything has been explained in detail to the patient, and he seems to understand. He will continue with home O2. cc: Dell Duff MD
== END 2019-03-31 12:16 | disposition home or self-care (01) | DRG 176 ==
LOC: SUPCPDRO → ED 08:44 → EDIPHOLD 14:25 → 2N 20:25 → 4N 03-30 13:34
PROVIDERS: ATTEND Internal Medicine